=== PATIENT | female | born 1970 | race Caucasian/White ===

== ENCOUNTER 2019-10-19 11:45 | Emergency (ER) | payer SELFPAY | END 2019-10-19 13:20 | disposition left against medical advice (07) | LOC: ER 11:45 | DX: Z53.21 Procedure and treatment not carried out due to patient leaving prior to being seen by health care provider (principal) ==

== ENCOUNTER 2021-02-15 17:06 | Emergency (ER) | payer OTHER ==
[~2021-02-15 17:06] MED LIST: IBU600 MG PO
== END 2021-02-15 19:05 | disposition left against medical advice (07) ==
LOC: ER 17:06
DX: Z53.21 Procedure and treatment not carried out due to patient leaving prior to being seen by health care provider (principal)

== ENCOUNTER 2021-05-16 19:59 | Emergency (ER) | payer OTHER ==
[~2021-05-16] VITALS: Ht 172.7 cm; Wt 136.1 kg
[2021-05-16 20:59] LABS: BASOPHILS ABSOLUTE AUTO 0.06 K/mm3 (0.00-0.23); BASOPHILS PERCENT AUTO 1 % (0-2); EOSINOPHILS ABSOLUTE AUTO 0.27 K/mm3 (0.00-0.68); EOSINOPHILS PERCENT AUTO 3 % (0-6); Hemoglobin 17.5 g/dL (11.5-16.0); IMMATURE GRAN ABSOLUTE AUTO 0.07 K/mm3 (0.00-0.10); IMMATURE GRAN PERCENT AUTO 1 % (0-1); LYMPHOCYTES ABSOLUTE AUTO 2.95 K/mm3 (0.84-5.20); LYMPHOCYTES PERCENT AUTO 29 % (21-46); MONOCYTES ABSOLUTE AUTO 0.63 K/mm3 (0.16-1.47); MONOCYTES PERCENT AUTO 6 % (4-13); Mean Corpuscular HGB 26.6 pg (26.0-34.0); Mean Corpuscular HGB Conc 31.6 g/dL (31.5-36.5); Mean Corpuscular Volume 84 fL (80-100); Mean Platelet Volume 10.6 fL (9.1-12.4); NEUTROPHILS ABSOLUTE AUTO 6.07 K/mm3 (1.96-9.15); NEUTROPHILS PERCENT AUTO 60 % (41-73); Platelet Count 226 K/mm3 (150-400); RDW Coefficient Variation 18.5 % (11.7-14.2); Red Blood Cell Count 6.57 M/mm3 (3.80-5.20); White Blood Cell Count 10.05 K/mm3 (4.00-11.30)
[2021-05-16 21:00] LABS: Hematocrit 55.4 % (33.0-51.0)
[2021-05-16 21:13] LABS: Source, Urine Clean Catch
[2021-05-16 21:17] LABS: Appearance, Urine Clear (Clear); Bilirubin, Urine Neg (Neg); Blood, Urine 4+ (Neg); Color, Urine Yellow (P-Yellow); Glucose Qualitative, Urine 4+ (Neg); Ketones, Urine Neg (Neg); Leukocyte Esterase, Urine Neg (Neg); Nitrite, Urine Neg (Neg); Protein, Urine 1+ (Neg); Urobilinogen, Urine NORM (Normal)
[2021-05-16 21:26] LABS: Alanine Aminotransfer (ALT/SGP 29 U/L (12-78); Albumin, Blood 2.9 g/dL (3.4-5.0); Albumin/Globulin Ratio 0.6 (0.8-1.8); Alk Phos 105 U/L (50-136); Anion Gap 8 mmol/L (6-16); Aspartate Aminotrans (AST/SGOT 14 U/L (12-37); Bilirubin, Total 0.2 mg/dL (0.1-1.0); Blood Urea Nitrogen 5 mg/dL (8-24); Bun/Creatinine Ratio 10.9 (12.0-20.0); CO2, Blood 28 mmol/L (21-32); Calcium, Blood 9.1 mg/dL (8.5-10.1); Chloride, Blood 98 mmol/L (98-108); Creatinine, Blood 0.46 mg/dL (0.40-1.00); Globulin, Blood 4.7 g/dL (2.2-4.0); Glomerular Filtration Rate >60 (60-); Glucose, Blood 434 mg/dL (70-99); Potassium, Blood 3.9 mmol/L (3.5-5.5); Sodium, Blood 134 mmol/L (136-145); Total Protein, Blood 7.6 g/dL (6.4-8.2)
[2021-05-16 21:27] LABS: White Blood Cells, Urine Not Seen /hpf (0-5)
[2021-05-16 21:28] LABS: Bacteria Rare /hpf; Squamous Epithelial Cells Few /hpf (Few)
[2021-05-16] MEDS ORDERED: ALBU90OI INH (21:42)
[2021-05-17] MEDS ORDERED: Colace100 MG PO (00:04)
[2021-05-17] MEDS ORDERED: GLYDO11 ML TOP (00:14)
[2021-05-17] MEDS ORDERED: HUMULIN R100 UNIT/2 SC (00:14)
== END 2021-05-17 00:35 | disposition home or self-care (01) ==
LOC: ER 19:59
PROVIDERS: Physician Assistant
DX: E11.65 Type 2 diabetes mellitus with hyperglycemia (principal); K42.9 Umbilical hernia without obstruction or gangrene; K64.4 Residual hemorrhoidal skin tags; Z88.0 Allergy status to penicillin; Z88.1 Allergy status to other antibiotic agents; Z88.8 Allergy status to other drugs, medicaments and biological substances; Z79.899 Other long term (current) drug therapy; J45.909 Unspecified asthma, uncomplicated; F17.200 Nicotine dependence, unspecified, uncomplicated
CPT/HCPCS: 36415; 71045; 74177; 80053; 81001; 82272; 83690; 85025; 96374; 96375; 99284-25; A9270; J1885; J3010; J7030; Q9967

== ENCOUNTER → 2021-06-09 | Outpatient (CLI) | payer OTHER ==
[~2021-06-09] MED LIST changes: +ALBU90OI INH; +Colace100 MG PO; +GLYDO11 ML TOP; +HUMULIN R100 UNIT/2 SC
[2021-06-09 15:12] LABS: BASOPHILS ABSOLUTE AUTO 0.06 K/mm3 (0.00-0.23); BASOPHILS PERCENT AUTO 1 % (0-2); EOSINOPHILS ABSOLUTE AUTO 0.21 K/mm3 (0.00-0.68); EOSINOPHILS PERCENT AUTO 2 % (0-6); Hematocrit 52.2 % (33.0-51.0); IMMATURE GRAN ABSOLUTE AUTO 0.05 K/mm3 (0.00-0.10); IMMATURE GRAN PERCENT AUTO 0 % (0-1); LYMPHOCYTES ABSOLUTE AUTO 3.25 K/mm3 (0.84-5.20); LYMPHOCYTES PERCENT AUTO 27 % (21-46); MONOCYTES ABSOLUTE AUTO 0.86 K/mm3 (0.16-1.47); MONOCYTES PERCENT AUTO 7 % (4-13); Mean Corpuscular HGB 26.2 pg (26.0-34.0); Mean Corpuscular HGB Conc 30.7 g/dL (31.5-36.5); Mean Corpuscular Volume 86 fL (80-100); Mean Platelet Volume 11.8 fL (9.1-12.4); NEUTROPHILS ABSOLUTE AUTO 7.49 K/mm3 (1.96-9.15); NEUTROPHILS PERCENT AUTO 63 % (41-73); Platelet Count 263 K/mm3 (150-400); RDW Coefficient Variation 17.6 % (11.7-14.2); RDW Standard Deviation 53.1 fL (35.1-46.3); White Blood Cell Count 11.92 K/mm3 (4.00-11.30)
[2021-06-09 15:22] LABS: Alanine Aminotransfer (ALT/SGP 76 U/L (12-78); Albumin, Blood 3.1 g/dL (3.4-5.0); Albumin/Globulin Ratio 0.9 (0.8-1.8); Alk Phos 97 U/L (50-136); Anion Gap 6 mmol/L (6-16); Aspartate Aminotrans (AST/SGOT 49 U/L (12-37); Bilirubin, Total 0.5 mg/dL (0.1-1.0); Blood Urea Nitrogen 8 mg/dL (8-24); Bun/Creatinine Ratio 15.9 (12.0-20.0); CHOL/HDL RATIO 3.6; CO2, Blood 34 mmol/L (21-32); Calcium, Blood 8.7 mg/dL (8.5-10.1); Chloride, Blood 96 mmol/L (98-108); Cholesterol 197 mg/dL (50-200); Globulin, Blood 3.6 g/dL (2.2-4.0); Glomerular Filtration Rate >60 (60-); Glucose, Blood 283 mg/dL (70-99); HDL Cholesterol 55 mg/dL (>39); Low Density Lipoprotein Chol 108 mg/dL (0-110); Potassium, Blood 4.1 mmol/L (3.5-5.5); Sodium, Blood 136 mmol/L (136-145); Total Protein, Blood 6.7 g/dL (6.4-8.2); Triglycerides 169 mg/dL (30-160); Very Low Density Lipoprot Chol 33 mg/dL (6-32)
[2021-06-09 17:38] LABS: Creatinine, Urine Random 17.9 mg/dL (27.00-270.00); Microalb/Creat Ratio UR, Rand 375.978 mg/g (0.000-30.000); Microalbumin, Random Urine 67.3 mg/L (0.000-20.000)
== END ==
LOC: LAB SHORT 13:59
PROVIDERS: Nurse Practitioner Family
DX: Z00.00 Encounter for general adult medical examination without abnormal findings (principal); E10.8 Type 1 diabetes mellitus with unspecified complications
CPT/HCPCS: 80053; 80061; 82043; 82570; 84443; 85025

== ENCOUNTER 2021-07-26 17:29 | Emergency (ER) | payer OTHER ==
[~2021-07-26] VITALS: Ht 167.6 cm; Wt 136.5 kg
[2021-07-26 18:29] LABS: BASOPHILS ABSOLUTE AUTO 0.03 K/mm3 (0.00-0.23); BASOPHILS PERCENT AUTO 0 % (0-2); EOSINOPHILS ABSOLUTE AUTO 0.24 K/mm3 (0.00-0.68); EOSINOPHILS PERCENT AUTO 3 % (0-6); Hematocrit 54.4 % (33.0-51.0); Hemoglobin 17.1 g/dL (11.5-16.0); IMMATURE GRAN ABSOLUTE AUTO 0.03 K/mm3 (0.00-0.10); IMMATURE GRAN PERCENT AUTO 0 % (0-1); LYMPHOCYTES ABSOLUTE AUTO 2.38 K/mm3 (0.84-5.20); LYMPHOCYTES PERCENT AUTO 28 % (21-46); MONOCYTES ABSOLUTE AUTO 0.61 K/mm3 (0.16-1.47); MONOCYTES PERCENT AUTO 7 % (4-13); Mean Corpuscular HGB Conc 31.4 g/dL (31.5-36.5); Mean Corpuscular Volume 86 fL (80-100); Mean Platelet Volume 10.4 fL (9.1-12.4); NEUTROPHILS ABSOLUTE AUTO 5.28 K/mm3 (1.96-9.15); NEUTROPHILS PERCENT AUTO 62 % (41-73); Platelet Count 302 K/mm3 (150-400); RDW Coefficient Variation 17.6 % (11.7-14.2); RDW Standard Deviation 51.7 fL (35.1-46.3); Red Blood Cell Count 6.33 M/mm3 (3.80-5.20); White Blood Cell Count 8.57 K/mm3 (4.00-11.30)
[2021-07-26 18:42] LABS: Alanine Aminotransfer (ALT/SGP 28 U/L (12-78); Albumin, Blood 3.1 g/dL (3.4-5.0); Albumin/Globulin Ratio 0.6 (0.8-1.8); Alk Phos 90 U/L (50-136); Anion Gap 5 mmol/L (6-16); Aspartate Aminotrans (AST/SGOT 17 U/L (12-37); Bilirubin, Total 0.4 mg/dL (0.1-1.0); Blood Urea Nitrogen 5 mg/dL (8-24); Bun/Creatinine Ratio 10.9 (12.0-20.0); CO2, Blood 33 mmol/L (21-32); Calcium, Blood 9.1 mg/dL (8.5-10.1); Chloride, Blood 98 mmol/L (98-108); Creatinine, Blood 0.46 mg/dL (0.40-1.00); Globulin, Blood 4.8 g/dL (2.2-4.0); Glomerular Filtration Rate >60 (60-); Glucose, Blood 258 mg/dL (70-99); Potassium, Blood 3.4 mmol/L (3.5-5.5); Sodium, Blood 136 mmol/L (136-145); Total Protein, Blood 7.9 g/dL (6.4-8.2)
== END 2021-07-27 00:32 | disposition home or self-care (01) ==
LOC: ER 17:29
PROVIDERS: Physician Assistant
DX: R07.9 Chest pain, unspecified (principal); Z88.0 Allergy status to penicillin; Z88.8 Allergy status to other drugs, medicaments and biological substances; E11.9 Type 2 diabetes mellitus without complications; F17.200 Nicotine dependence, unspecified, uncomplicated; Z79.4 Long term (current) use of insulin
CPT/HCPCS: 71046; 71260; 80053; 83690; 83880; 84484; 85025; 85379; 93005; 93010; 99285-25; Q9967

== ENCOUNTER 2021-11-13 17:37 | Emergency (ER) | payer OTHER ==
[~2021-11-13] VITALS: Ht 167.6 cm; Wt 90.7 kg
[2021-11-13 18:24] LABS: BASOPHILS ABSOLUTE AUTO 0.04 K/mm3 (0.00-0.23); BASOPHILS PERCENT AUTO 1 % (0-2); EOSINOPHILS ABSOLUTE AUTO 0.24 K/mm3 (0.00-0.68); EOSINOPHILS PERCENT AUTO 3 % (0-6); Hemoglobin 14.9 g/dL (11.5-16.0); IMMATURE GRAN ABSOLUTE AUTO 0.05 K/mm3 (0.00-0.10); IMMATURE GRAN PERCENT AUTO 1 % (0-1); LYMPHOCYTES PERCENT AUTO 36 % (21-46); MONOCYTES ABSOLUTE AUTO 0.74 K/mm3 (0.16-1.47); MONOCYTES PERCENT AUTO 8 % (4-13); Mean Corpuscular HGB 29.4 pg (26.0-34.0); Mean Corpuscular HGB Conc 33.9 g/dL (31.5-36.5); Mean Corpuscular Volume 87 fL (80-100); Mean Platelet Volume 10.7 fL (9.1-12.4); NEUTROPHILS ABSOLUTE AUTO 4.54 K/mm3 (1.96-9.15); NEUTROPHILS PERCENT AUTO 52 % (41-73); Platelet Count 262 K/mm3 (150-400); RDW Coefficient Variation 15.1 % (11.7-14.2); Red Blood Cell Count 5.06 M/mm3 (3.80-5.20); White Blood Cell Count 8.81 K/mm3 (4.00-11.30)
[2021-11-13 18:35] LABS: Albumin, Blood 2.7 g/dL (3.4-5.0); Albumin/Globulin Ratio 0.6 (0.8-1.8); Bilirubin, Total 0.3 mg/dL (0.1-1.0); Bun/Creatinine Ratio 11.9 (12.0-20.0); Calcium, Blood 8.8 mg/dL (8.5-10.1); Creatinine, Blood 0.5 mg/dL (0.40-1.00); Globulin, Blood 4.4 g/dL (2.2-4.0); Potassium, Blood 3.4 mmol/L (3.5-5.5); Total Protein, Blood 7.1 g/dL (6.4-8.2)
[2021-11-13 19:36] LABS: Influenza A, PCR NEGATIVE (NEGATIVE); Influenza B, PCR NEGATIVE (NEGATIVE); Resp Syncytial Virus, PCR NEGATIVE (NEGATIVE); SARS-Cov-2 (COVID-19) PCR, MMC NEGATIVE (NEGATIVE)
== END 2021-11-13 20:57 | disposition home or self-care (01) ==
LOC: ER 17:37
PROVIDERS: Student in an Organized Health Care Education/Training Program
DX: B34.9 Viral infection, unspecified (principal); E11.65 Type 2 diabetes mellitus with hyperglycemia; Z20.822 Contact with and (suspected) exposure to COVID-19; J45.909 Unspecified asthma, uncomplicated; F17.200 Nicotine dependence, unspecified, uncomplicated; Z79.4 Long term (current) use of insulin; Z79.899 Other long term (current) drug therapy; Z88.1 Allergy status to other antibiotic agents; Z88.0 Allergy status to penicillin; Z88.8 Allergy status to other drugs, medicaments and biological substances
CPT/HCPCS: 0241U; 36415; 71045; 74177; 80053; 82947; 83690; 85025; 93005; 93010; J7030; Q9967

== ENCOUNTER 2022-03-29 17:47 | Emergency (ER) | payer OTHER ==
[~2022-03-29] VITALS: Ht 167.6 cm; Wt 122.5 kg
[~2022-03-29 17:47] MED LIST changes: +CYCL10 PO; +Norco 5-325 Ta1 EACH PO
[2022-03-29 18:44] LABS: BASOPHILS ABSOLUTE AUTO 0.07 K/mm3 (0.00-0.23); BASOPHILS PERCENT AUTO 1 % (0-2); EOSINOPHILS ABSOLUTE AUTO 0.13 K/mm3 (0.00-0.68); EOSINOPHILS PERCENT AUTO 1 % (0-6); Hematocrit 52.3 % (33.0-51.0); Hemoglobin 17.7 g/dL (11.5-16.0); IMMATURE GRAN ABSOLUTE AUTO 0.09 K/mm3 (0.00-0.10); IMMATURE GRAN PERCENT AUTO 1 % (0-1); LYMPHOCYTES ABSOLUTE AUTO 3.55 K/mm3 (0.84-5.20); LYMPHOCYTES PERCENT AUTO 28 % (21-46); MONOCYTES ABSOLUTE AUTO 0.96 K/mm3 (0.16-1.47); MONOCYTES PERCENT AUTO 7 % (4-13); Mean Corpuscular HGB 29.6 pg (26.0-34.0); Mean Corpuscular HGB Conc 33.8 g/dL (31.5-36.5); Mean Corpuscular Volume 88 fL (80-100); Mean Platelet Volume 10.6 fL (9.1-12.4); NEUTROPHILS ABSOLUTE AUTO 8.09 K/mm3 (1.96-9.15); NEUTROPHILS PERCENT AUTO 63 % (41-73); Platelet Count 278 K/mm3 (150-400); RDW Coefficient Variation 13.4 % (11.7-14.2); RDW Standard Deviation 43.2 fL (35.1-46.3); Red Blood Cell Count 5.97 M/mm3 (3.80-5.20); White Blood Cell Count 12.89 K/mm3 (4.00-11.30)
[2022-03-29 19:09] LABS: Albumin, Blood 3.4 g/dL (3.4-5.0); Albumin/Globulin Ratio 0.7 (0.8-1.8); Bilirubin, Total 0.2 mg/dL (0.1-1.0); Bun/Creatinine Ratio 16.4 (12.0-20.0); Calcium, Blood 9.2 mg/dL (8.5-10.1); Creatinine, Blood 0.67 mg/dL (0.40-1.00); Globulin, Blood 4.6 g/dL (2.2-4.0); Potassium, Blood 3.9 mmol/L (3.5-5.5)
[2022-03-29 19:57] LABS: Base Excess Venous 5.5 mmol/L; Bicarbonate Venous 27.9 mmol/L (24.0-30.0); PCO2 Venous 52.2 mmHg (38-42); pH Blood Venous 7.38 (7.34-7.37)
[2022-03-29 20:35] LABS: Source, Urine Clean Catch
[2022-03-29 20:40] LABS: Appearance, Urine Hazy (Clear); Bilirubin, Urine Neg (Neg); Blood, Urine 4+ (Neg); Color, Urine Yellow (P-Yellow); Glucose Qualitative, Urine 4+ (Neg); Ketones, Urine Neg (Neg); Leukocyte Esterase, Urine Neg (Neg); Nitrite, Urine Neg (Neg); Protein, Urine 2+ (Neg); Specific Gravity, Urine 1.015 (1.003-1.022); Urobilinogen, Urine NORM (Normal)
[2022-03-29 20:49] LABS: Bacteria Rare /hpf; Red Blood Cells, Urine 0-2 /hpf (0-2); Squamous Epithelial Cells Few /hpf (Few); White Blood Cells, Urine 0-2 /hpf (0-5); Yeast/Fungi Urine Few /hpf
== END 2022-03-29 22:04 | disposition home or self-care (01) ==
LOC: ER 17:47
PROVIDERS: Physician Assistant
DX: E11.65 Type 2 diabetes mellitus with hyperglycemia (principal); R07.89 Other chest pain; L30.9 Dermatitis, unspecified; J45.909 Unspecified asthma, uncomplicated; F17.210 Nicotine dependence, cigarettes, uncomplicated; Z88.8 Allergy status to other drugs, medicaments and biological substances; Z88.0 Allergy status to penicillin; Z88.1 Allergy status to other antibiotic agents; Z79.899 Other long term (current) drug therapy; Z79.4 Long term (current) use of insulin
CPT/HCPCS: 36415; 71046; 80053; 81001; 82803; 82947; 84484; 85025; 93005; 93010; J1815; J7030

== ENCOUNTER → 2022-04-16 | Outpatient (CLI) | payer OTHER | END | disposition home or self-care (01) | LOC: LAB SHORT 18:24 | DX: R21 Rash and other nonspecific skin eruption (principal) | CPT/HCPCS: 86592 ==

== ENCOUNTER 2022-05-16 17:22 | Emergency (ER) | payer OTHER ==
[~2022-05-16] VITALS: Ht 170.2 cm; Wt 136.1 kg
[2022-05-16 18:07] LABS: BASOPHILS ABSOLUTE AUTO 0.05 K/mm3 (0.00-0.23); BASOPHILS PERCENT AUTO 0 % (0-2); EOSINOPHILS ABSOLUTE AUTO 0.31 K/mm3 (0.00-0.68); EOSINOPHILS PERCENT AUTO 2 % (0-6); Hematocrit 46.4 % (33.0-51.0); IMMATURE GRAN ABSOLUTE AUTO 0.11 K/mm3 (0.00-0.10); IMMATURE GRAN PERCENT AUTO 1 % (0-1); LYMPHOCYTES ABSOLUTE AUTO 2.79 K/mm3 (0.84-5.20); LYMPHOCYTES PERCENT AUTO 19 % (21-46); MONOCYTES ABSOLUTE AUTO 0.81 K/mm3 (0.16-1.47); MONOCYTES PERCENT AUTO 6 % (4-13); Mean Corpuscular HGB 30.4 pg (26.0-34.0); Mean Corpuscular HGB Conc 34.5 g/dL (31.5-36.5); Mean Corpuscular Volume 88 fL (80-100); Mean Platelet Volume 10.4 fL (9.1-12.4); NEUTROPHILS ABSOLUTE AUTO 10.54 K/mm3 (1.96-9.15); NEUTROPHILS PERCENT AUTO 72 % (41-73); Platelet Count 240 K/mm3 (150-400); RDW Coefficient Variation 13.8 % (11.7-14.2); RDW Standard Deviation 43.9 fL (35.1-46.3); Red Blood Cell Count 5.27 M/mm3 (3.80-5.20); White Blood Cell Count 14.61 K/mm3 (4.00-11.30)
[2022-05-16 18:30] LABS: Albumin, Blood 3.1 g/dL (3.4-5.0); Albumin/Globulin Ratio 0.7 (0.8-1.8); Bilirubin, Total 0.4 mg/dL (0.1-1.0); Calcium, Blood 8.8 mg/dL (8.5-10.1); Creatinine, Blood 0.4 mg/dL (0.40-1.00); Globulin, Blood 4.2 g/dL (2.2-4.0); Potassium, Blood 3.4 mmol/L (3.5-5.5); Total Protein, Blood 7.3 g/dL (6.4-8.2)
[2022-05-16 18:36] LABS: Influenza A, PCR NEGATIVE (NEGATIVE); Influenza B, PCR NEGATIVE (NEGATIVE); Resp Syncytial Virus, PCR NEGATIVE (NEGATIVE); SARS-Cov-2 (COVID-19) PCR, MMC NEGATIVE (NEGATIVE)
[2022-05-16] MEDS ORDERED: HYDR1TAB94 PO (20:31)
[2022-05-16] MEDS ORDERED: CEFP200 PO (20:31)
== END 2022-05-16 21:55 | disposition home or self-care (01) ==
LOC: ER 17:22
PROVIDERS: Physician Assistant
DX: H66.91 Otitis media, unspecified, right ear (principal); Z20.822 Contact with and (suspected) exposure to COVID-19; E11.9 Type 2 diabetes mellitus without complications; J45.909 Unspecified asthma, uncomplicated; F17.210 Nicotine dependence, cigarettes, uncomplicated; Z88.0 Allergy status to penicillin; Z88.1 Allergy status to other antibiotic agents; Z88.8 Allergy status to other drugs, medicaments and biological substances; Z79.899 Other long term (current) drug therapy
CPT/HCPCS: 0241U; 36415; 70450; 80053; 83690; 85025; A9270; J0696; J0780; J2270

== ENCOUNTER 2022-05-22 01:03 | Observation (INO) | payer OTHER ==
[~2022-05-22] VITALS: Ht 167.6 cm; Wt 128.4 kg
[~2022-05-22 01:03] MED LIST changes: +CEFP200 PO; +HYDR1TAB94 PO
[2022-05-22 02:18] LABS: BASOPHILS ABSOLUTE AUTO 0.04 K/mm3 (0.00-0.23); BASOPHILS PERCENT AUTO 0 % (0-2); EOSINOPHILS ABSOLUTE AUTO 0.35 K/mm3 (0.00-0.68); EOSINOPHILS PERCENT AUTO 3 % (0-6); Hematocrit 46.8 % (33.0-51.0); Hemoglobin 15.7 g/dL (11.5-16.0); IMMATURE GRAN ABSOLUTE AUTO 0.07 K/mm3 (0.00-0.10); IMMATURE GRAN PERCENT AUTO 1 % (0-1); LYMPHOCYTES ABSOLUTE AUTO 3.09 K/mm3 (0.84-5.20); LYMPHOCYTES PERCENT AUTO 26 % (21-46); MONOCYTES ABSOLUTE AUTO 0.82 K/mm3 (0.16-1.47); MONOCYTES PERCENT AUTO 7 % (4-13); Mean Corpuscular HGB 29.9 pg (26.0-34.0); Mean Corpuscular HGB Conc 33.5 g/dL (31.5-36.5); Mean Corpuscular Volume 89 fL (80-100); Mean Platelet Volume 9.8 fL (9.1-12.4); NEUTROPHILS PERCENT AUTO 63 % (41-73); NRBC ABSOLUTE 0.02 K/mm3 (0.00-0.02); NRBC Auto 0.2 /100 WBC (0.0-0.2); Platelet Count 242 K/mm3 (150-400); RDW Coefficient Variation 14.6 % (11.7-14.2); RDW Standard Deviation 46.5 fL (35.1-46.3); Red Blood Cell Count 5.25 M/mm3 (3.80-5.20); White Blood Cell Count 11.77 K/mm3 (4.00-11.30)
[2022-05-22 02:42] LABS: Albumin, Blood 2.9 g/dL (3.4-5.0); Albumin/Globulin Ratio 0.7 (0.8-1.8); Bilirubin, Total 0.4 mg/dL (0.1-1.0); Bun/Creatinine Ratio 8.3 (12.0-20.0); Calcium, Blood 9.1 mg/dL (8.5-10.1); Creatinine, Blood 0.48 mg/dL (0.40-1.00); Globulin, Blood 4.3 g/dL (2.2-4.0); Potassium, Blood 3.4 mmol/L (3.5-5.5); Total Protein, Blood 7.2 g/dL (6.4-8.2)
[2022-05-22 03:58] LABS: Source, Urine Clean Catch
[2022-05-22 04:00] LABS: Bilirubin, Urine Neg (Neg); Blood, Urine 4+ (Neg); Glucose Qualitative, Urine 3+ (Neg); Ketones, Urine Neg (Neg); Leukocyte Esterase, Urine Neg (Neg); Nitrite, Urine Neg (Neg); Protein, Urine 1+ (Neg); Urobilinogen, Urine NORM (Normal); pH, Urine 6.5 (5.0-8.0)
[2022-05-22 05:23] LABS: Appearance, Urine Clear (Clear); Color, Urine Yellow (P-Yellow)
[2022-05-22 05:25] LABS: Bacteria Few /hpf; Squamous Epithelial Cells Mod /hpf (Few); White Blood Cells, Urine 0-2 /hpf (0-5); Yeast/Fungi Urine Rare /hpf
--- NOTE | 2022-05-22 17:50 | NUR ---
ER ADMIT Patient admitted for syncope. AOx4. During newspaper reporter told patient that d/t risk factors and admit dx, patient needs to call for help when getting OOB, patient said she will call but won't wait for staff if she has urinary urgency, reienforced teaching on safety and fall prevention. Bed alarm activated and audible. Patient refused skin check, but told RN that she has a rash t/o body, and rash under pannus. She stated she has a biopsy scheduled for tomorrow. CBG at 1630 was 336, 8u of SSI administred. Vitals stable, Tele NSR. Will continue plan of care & given report to oncoming nurse.
--- NOTE | 2022-05-23 06:30 | NUR ---
Shift Summary AOx4, pleasant and cooperative. PT has DM2 with uncontrolled blood sugar, A1C 12.1 and blood glucose readings over 300. Pt is non-compliant with ADA diet, requesting sugary drinks. Pt awoke twice in the night feeling terrible with a severe R sided headache and a sensation of being too hot. Gave PRN Fentanyl 50 mcg x 1 and ice packs which the pt stated barely touched the pain. Her PRN Q6 [place] 5mg is far more effective. Was able to convince pt to switch to bubbly temporarily instead of sugar soda. On tele running NSR 80-90. Independent with 1 sba in the room. No acute events.
--- NOTE | 2022-05-23 19:37 | NUR ---
SHIFT SUMMARY PT RESTING QUIETLY AT START OF SHIFT, NPO FOR STRESS TEST THIS AFTERNOON. PT COMPLETED STRESS TEST AND THEN LEFT UNIT TO GO OUT TO K. PT IS NONCOMPLIANT DIABETIC WELL, GOING DOWN TO MACHINES FOR SNACKS; CBG INCREASING THRU OUT THE DAY. DR LATHAM IN TO SEE PT IN AM AND RETURNED AGAIN THIS AFTERNOON TO DISCUSS STRESS TEST RESULTS, BUT PT WAS OUTSIDE SMKING. PT TO HAVE ECHO DONE AND ZIO PATCH PLACED BEFORE D/C TO HOME. PT TO STAY UNTIL AM NOW. PT'S TO THIS EVENING; PT AND SMKING IN RM. PT INFORMED OF RULES BY CLINICAL OUTPATIENT CODERKVNG. PT THEN TAKEN OUTSIDE AGAIN BY , AFTER DINNER, TO [facility] AND JUST NOW RETURNING TO . REPORT GIVEN TO PATRICK DONNELLY.
--- NOTE | 2022-05-23 19:46 | NUR ---
Patient continues to leave floor without nofifying staff,patient has been educated not to leave floor but refuses to follow instructions. Patient is purchasing snacks and beverages that are not compliant with diabetic diet, again refusig to follow medical advise.
--- NOTE | 2022-05-24 06:11 | NUR ---
Patient uncooperative with most of care, prn pain medications given, getting snacks and drinks from vending machine that are not compliants with diabetic diet, refuses education.
--- NOTE | 2022-05-24 11:39 | NUR ---
Echocardiogram performed.
[2022-05-24] MEDS ORDERED: CEFP200 PO (15:34)
--- NOTE | 2022-05-24 16:24 | NUR ---
DISCHARGE SUMMARY: PT DISCHARGED TO HOME WITH BRIDGETTE. PT EDUCATED ON DISCHARGE PLAN AND MEDICATIONS. PT ASSISTED WITH PACKING UP BELONGINGS. PT ESCORTED TO POV VIA WC WITH . LATE ENTRY FROM TODAY: PT WAS NONCOMPLIANT WITH DIET TODAY. PT WENT DOWN AT LUNCH TIME TO CAFETERIA AND ATE 2ND LUNCH. PT SPOUSE PROVIDED HER WITH PEPSI X 2 CANS WHICH SHE DRANK. PT WAS DISCOURAGED TO EAT A SECOND LUNCH AND DRINK PEPSI. SHE WAS EDUCATED ON DIABETES MANAGEMENT. PT CONTINUED TO BE NON COMPLIANT.
== END 2022-05-24 16:18 | disposition home or self-care (01) ==
LOC: ER 01:03 → ERHOLD 01:04 → MEDS 01:04
PROVIDERS: Emergency Medicine; ADMIT Family Medicine
DX: R55 Syncope and collapse (principal); E11.9 Type 2 diabetes mellitus without complications; J45.909 Unspecified asthma, uncomplicated; D72.829 Elevated white blood cell count, unspecified; Z88.0 Allergy status to penicillin; E87.6 Hypokalemia; Z72.0 Tobacco use
CPT/HCPCS: 36415; 71046; 71260; 78452; 80053; 81001; 82947; 83036; 83690; 83735; 83880; 84484; 85025; 93005; 93010; 93017; 93246; 93306; 96374-59; 96375; 96376; 99285-25; A9270; A9500; G0378; J0280; J1815; J1885; J2785; J3010; Q9967

== ENCOUNTER 2022-07-12 04:10 | Inpatient (IN) | payer OTHER ==
[~2022-07-12] VITALS: Ht 172.7 cm; Wt 125.6 kg
[2022-07-12 04:49] LABS: Bicarbonate Venous 30.4 mmol/L (24.0-30.0)
[2022-07-12 04:51] LABS: BASOPHILS ABSOLUTE AUTO 0.08 K/mm3 (0.00-0.23); BASOPHILS PERCENT AUTO 1 % (0-2); EOSINOPHILS ABSOLUTE AUTO 0.33 K/mm3 (0.00-0.68); EOSINOPHILS PERCENT AUTO 3 % (0-6); Hematocrit 52.4 % (33.0-51.0); Hemoglobin 17.3 g/dL (11.5-16.0); IMMATURE GRAN ABSOLUTE AUTO 0.08 K/mm3 (0.00-0.10); IMMATURE GRAN PERCENT AUTO 1 % (0-1); LYMPHOCYTES ABSOLUTE AUTO 3.23 K/mm3 (0.84-5.20); LYMPHOCYTES PERCENT AUTO 27 % (21-46); MONOCYTES PERCENT AUTO 6 % (4-13); Mean Corpuscular HGB 28.8 pg (26.0-34.0); Mean Corpuscular Volume 87 fL (80-100); Mean Platelet Volume 10.1 fL (9.1-12.4); NEUTROPHILS ABSOLUTE AUTO 7.45 K/mm3 (1.96-9.15); NEUTROPHILS PERCENT AUTO 63 % (41-73); Platelet Count 254 K/mm3 (150-400); RDW Standard Deviation 46.5 fL (35.1-46.3); White Blood Cell Count 11.87 K/mm3 (4.00-11.30)
[2022-07-12 05:50] LABS: Calcium, Ionized (POC) 1.17 mmol/L (1.10-1.46); Chloride (POC) 91 mmol/L (98-108); Creatinine (POC) 0.5 mg/dL (0.6-1.0); Glucose (ISTAT POC) 384 mg/dL (70-99); Hemoglobin (POC) 17.7 g/dL (12.0-16.0); Potassium (POC) 3.8 mmol/L (3.5-5.5); Sodium (POC) 133 mmol/L (135-148); Total CO2 (POC) 32 mmol/L (21-32)
[2022-07-12 06:26] LABS: Influenza A, PCR NEGATIVE (NEGATIVE); Influenza B, PCR NEGATIVE (NEGATIVE); Resp Syncytial Virus, PCR NEGATIVE (NEGATIVE); SARS-Cov-2 (COVID-19) PCR, MMC NEGATIVE (NEGATIVE)
--- NOTE | 2022-07-12 10:13 | NUR ---
Pt arrived from ED at 0956, the [facility] gtt completed in the ED just prior to transport. Pt currently on 6 lpm via NC, and able to ambulate short distances using a walker. Pt presented w/ personal effects and personal walker.
[2022-07-12 11:45] LABS: U Amphetamine Screen Not Detected; U Barbituate Screen Not Detected; U Benzodiazapine Screen Not Detected; U Buprenorphine Screen Not Detected; U Cannabinoids Screen Not Detected; U Cocaine Screen Not Detected; U Methadone Screen Not Detected; U Methamphetamine Screen Not Detected; U Opiates Screen DETECTED; U Oxycodone Screen Not Detected; U Phencyclidine Screen Not Detected; U Propoxyphene Screen Not Detected
[2022-07-12 11:55] LABS: Bun/Creatinine Ratio 9.6 (12.0-20.0); Calcium, Blood 9.7 mg/dL (8.5-10.1); Creatinine, Blood 0.83 mg/dL (0.40-1.00); Magnesium, Blood 1.5 mg/dL (1.6-2.4); Potassium, Blood 4.3 mmol/L (3.5-5.5)
--- NOTE | 2022-07-12 14:51 | NUR ---
Pt requesting something else for pain; pt denies any allergies to hydromorphone or morphine. Advised she has "never had any problems" with either og the medications and that the IVP Fentanyl did not help w/ her pain.
[2022-07-12 15:44] LABS: CPK Creatine Kinase 57 U/L (26-193)
[2022-07-12 15:49] LABS: CPK Creatine Kinase 50 U/L (26-192)
[2022-07-12 16:55] LABS: Glucose (ISTAT POC) 582 mg/dL (70-99)
--- NOTE | 2022-07-12 17:00 | NUR ---
Checked pt BGL which read "HI;" performed a POC glucose and received 582. Spoke w/ Dr. Levin who advised he would modify her insulin orders. Also notified Dr. Levin that RN walked in to check pt BGL she had been eating a candy bar given to her by her ex- who was at bedside. RN requested the pt to not eat anything from outside, as it may affect her care.
[2022-07-12 17:53] LABS: Glucose, Blood 616 mg/dL (70-99)
[2022-07-12 21:53] LABS: Glucose, Blood 839 mg/dL (70-99)
[2022-07-12 22:52] LABS: Anion Gap 14 mmol/L (6-16); Blood Urea Nitrogen 13 mg/dL (8-24); Bun/Creatinine Ratio 20.3 (12.0-20.0); CO2, Blood 24 mmol/L (21-32); Calcium, Blood 9.6 mg/dL (8.5-10.1); Chloride, Blood 90 mmol/L (98-108); Creatinine, Blood 0.64 mg/dL (0.40-1.00); Glomerular Filtration Rate 105 (60-); Potassium, Blood 4.3 mmol/L (3.5-5.5); Sodium, Blood 128 mmol/L (136-145)
[2022-07-13 00:02] LABS: Glucose, Blood 860 mg/dL (70-99)
[2022-07-13 01:59] LABS: Glucose, Blood 734 mg/dL (70-99)
[2022-07-13 03:14] LABS: BASOPHILS ABSOLUTE AUTO 0.02 K/mm3 (0.00-0.23); BASOPHILS PERCENT AUTO 0 % (0-2); EOSINOPHILS ABSOLUTE AUTO 0.02 K/mm3 (0.00-0.68); EOSINOPHILS PERCENT AUTO 0 % (0-6); Hematocrit 47.8 % (33.0-51.0); Hemoglobin 15.8 g/dL (11.5-16.0); IMMATURE GRAN ABSOLUTE AUTO 0.14 K/mm3 (0.00-0.10); IMMATURE GRAN PERCENT AUTO 1 % (0-1); LYMPHOCYTES ABSOLUTE AUTO 1.28 K/mm3 (0.84-5.20); LYMPHOCYTES PERCENT AUTO 9 % (21-46); MONOCYTES ABSOLUTE AUTO 0.45 K/mm3 (0.16-1.47); MONOCYTES PERCENT AUTO 3 % (4-13); Mean Corpuscular HGB 29.3 pg (26.0-34.0); Mean Corpuscular HGB Conc 33.1 g/dL (31.5-36.5); Mean Corpuscular Volume 89 fL (80-100); Mean Platelet Volume 10.5 fL (9.1-12.4); NEUTROPHILS PERCENT AUTO 87 % (41-73); NRBC ABSOLUTE 0.02 K/mm3 (0.00-0.02); NRBC Auto 0.1 /100 WBC (0.0-0.2); Platelet Count 270 K/mm3 (150-400); RDW Coefficient Variation 14.6 % (11.7-14.2); RDW Standard Deviation 46.3 fL (35.1-46.3); Red Blood Cell Count 5.39 M/mm3 (3.80-5.20); White Blood Cell Count 14.61 K/mm3 (4.00-11.30)
[2022-07-13 03:36] LABS: Albumin/Globulin Ratio 0.7 (0.8-1.8); Bilirubin, Total 0.3 mg/dL (0.1-1.0); Bun/Creatinine Ratio 19.7 (12.0-20.0); Calcium, Blood 9.2 mg/dL (8.5-10.1); Creatinine, Blood 0.66 mg/dL (0.40-1.00); Globulin, Blood 4.4 g/dL (2.2-4.0); Potassium, Blood 3.8 mmol/L (3.5-5.5); Total Protein, Blood 7.4 g/dL (6.4-8.2)
[2022-07-13 05:01] LABS: Glucose, Blood 551 mg/dL (70-99)
--- NOTE | 2022-07-13 05:45 | NUR ---
SHIFT SUMMARY: CBG done at 2049 read > 500, lab confirmation ordered. Actual glucose was 839. Dr. Og notified, insulin orders modified. CBG checked 1 hour after giving lispro, again read >500. Blood glucose per lab was 860. Dr. Og notified, received one time order for 10 units of lispro SQ. CBG rechecked after giving this dose, still greater than [address] Monaco notified, orders for insulin drip received. Started insulin drip at 4units/hour per MD order. Titrated up to 5units/hr at 0520 because last CBG was still greater than 500. Patient exhibiting polydipsia, polyuria, expresses feelings of hunger and irritability. Diet remains ADA per Dr. Monaco. Patient stated that if she was made NPO, she would leave AMA. Patient has been anxious and irritable throughout the night. Still requiring 6L oxygen by nasal cannula to maintain sats above 92%. She has a persistent, strong, non-productive cough and dyspnea with exertion.
[2022-07-13 06:04] LABS: Glucose, Blood 550 mg/dL (70-99)
--- NOTE | 2022-07-13 10:06 | NUR ---
Assumed care for pt at 0700. Currently on Insulin gtt 5 units/hr due to continued hyperglycemia overnight. Pt remains on 6 lpm o2 via NC w/ dry cough, non-productive cough. A&Ox4, GCS 15 and mostly cooperative w/ care albeit abrasive at times. Ambulates w/ walker to toilet, HR between 90-100 unless ambulating.
--- NOTE | 2022-07-13 12:29 | NUR ---
Pt c/o lower abdominal pain (RLQ/LLQ) and new onset N/V. Spoke w/ Dr. Levin who ordered Reglan IVP, or can escalate to Phenergan IVP if the Reglan does not help.
--- NOTE | 2022-07-13 13:42 | NUR ---
Pt again found eating food brought from outside the hospital by her ex-. Though he advises it is only for him, the RN witnessed pt eating a banana, [employer] breakfast sandwich and Coke. RN again requested that pt only eat foods r/t her ADA diet.
--- NOTE | 2022-07-13 18:15 | NUR ---
Pt remains on Insulin gtt @ 8 units/hr w/ q1hr glucose checks. Pt found eating outside food multiple tiems today. She advised it was because "the hospital food sucks." Rn advised pt this would not assist her care and to please only eat what is provided by hospital and RN. Pt o2 demands decreased today, she is down to 3 lpm o2 via NC. Second IV placed in R forearm, 20 G.
--- NOTE | 2022-07-13 21:30 | NUR ---
ASSUMED CARE/CALL TO HOSP/BEHAVIOR ASSUMED CARE AT 1900. PT A/O X 4. FOLLOWS DIRECTIONS. SR RATE 90'S. VSS. PT ON 3L NC. SPO2 GREATER THEN 90%. LUNG SOUNDS COARSE. INSULIN GTT INFUSING. SEE FLOWSHEET FOR TITRATIONS. PT S.O. BROUGHT IN FOOD AND SODA FOR PT. THIS RN TRIED TO EDUCATE PT ON ADA DIET, DM, AND INSULIN. PT AND S.O. UNRECPTIVE TO EDUCATION. PT STATES "IT'S NOT MY DIET THAT MAKES MY SUGAR HIGH. ITS WHAT YOU ALL ARE DOING. THE STERIODS." PT AND S.O. EDUCATED ON VISITOR HOURS. PT BECAME ANGRY WHEN TOLD THAT THE S.O. COULD NOT STAY THE NIGHT BECAUSE SHE CAN NOT SLEEP W/O THE S.O. PT THREATING TO LEAVE AMA IF SHE CAN NOT GET SLEEPING MEDICATIONS. CALL TO HOSP. ORDER RECEIVED. PT MEDICATED W/ SLEEPING MEDICATIONS. PT AND S.O. NEEDED FREQUENT REMINDERS THAT VISITING HOURS ARE OVER. S.O LEFT AT 2109.
--- NOTE | 2022-07-13 22:10 | NUR ---
UPDATE HOURLY GLUCOSE CHECK SHOWED 396, THE LAST GLUCOSE CHECK AN HOUR AGO WAS 416 WITH THE INSULIN GTT INFUSING AT 10UNITS/HR. PLAN WAS TO INCREASE INSULIN GTT TO 12UNITS/HR. PT EXPRESSED CONCERN THAT SHE SHOULD BECOME HYPOGLYCEMIC IN AN HOUR AND "FEEL LIKE SHIT". EDUCATION WAS GIVEN REGARDING HYPERGLYCEMIA AND THAT A NURSE WOULD BE BACK TO CHECK GLUCOSE IN ONE HOUR AND THAT IF SHE WERE TO START FEELING SYMPTOMATIC THAT THE RN WOULD CHECK GLUCOSE BEFORE THE HOUR IS UP. THE PT BEGAN STATING THAT THIS NURSE AND PRIMARY NURSE "DOESN'T KNOW ANYTHING!" AND BECOMING VERY UPSET, YELLING AT STAFF. CLARIFICATION WAS ATTEMPTED TO BUT THE PT WAS NOT REDIRECTABLE. PT CALLED TO COME PICK HER UP. DR LATHAM CALLED TO COME DISCUSS PLAN OF CARE WITH PT.
--- NOTE | 2022-07-13 22:41 | NUR ---
HOSP AT BEDSIDE SEE PREVIOUS NOTES. PT S.O. CALLED UNIT AND GIVEN UPDATE FROM CHARGE NURSE. HOSP AND CHARGE NURSE AT BEDSIDE TO TALK TO PT. PLAN FOR INSULIN GTT TO STAY AT 12UNITS/HR AND NOT INCREASE UNLESS CBG IS ABOVE 450 PER HOSP. PT AGREES W/ THIS PLAN AND STATES SHE WILL ALLOW CBG'S TO BE CHECKED EVERY HOUR.
--- NOTE | 2022-07-14 01:14 | NUR ---
UPDATE THIS RN IN ROOM TO CHECK CBG. PT EATING PRETZELS IN BED AND REQUESTING WATER. ATTEMPTED TO EDUCATE PT. PT IS NON-RECEPTIVE. PT C/O PAIN IN ABD. MEDICATED PER EMAR. PT IS A HIGH FALL RISK AND DOES NOT CALL FOR HELP GETTING OOB. PT EDUCATED ON RISKS AND PT AGREED TO SIGN RELEASE FROM RESPONSIBILY FORM. FORM IN PT CHART.
--- NOTE | 2022-07-14 03:32 | NUR ---
CALL TO HOSP PT C/O OF ABD PAIN 02/19. PT STATES "MY LIVER IS HURTING. ITS BECAUSE MY SUGAR DROPPED SO FAST". PT REQUESTED TO INCREASE NORCO DOSE TO . CALL TO HOSP. ORDER RECEIVED. THIS RN IN TO NOTIFY PT AND PT SLEEPING. WILL HOLD MEDICATION AT THIS TIME.
[2022-07-14 03:59] LABS: Bun/Creatinine Ratio 22.4 (12.0-20.0); Calcium, Blood 8.8 mg/dL (8.5-10.1); Creatinine, Blood 0.62 mg/dL (0.40-1.00); Potassium, Blood 3.4 mmol/L (3.5-5.5)
--- NOTE | 2022-07-14 05:25 | NUR ---
SHIFT SUMMARY NO ACUTE EVENTS T/O NIGHT. PT SLEPT INTERMITTENTLY T/O NIGHT. VSS. ON 3L NC. PT FREQUENTLY TAKES OFF BP CUFF AND CONTINUOUSLY MOVES BUE. ACCURATE BP HARD TO OBTAIN. PT CONTINUED TO EAT AND DRINK T/O NIGHT. EDUCATION PROVIDED, PT NON-RECEPTIVE. SEE PREVIOUS NOTES REGARDING BEHAVIOR AND CALL TO HOSP. PT IND IN ROOM.
--- NOTE | 2022-07-14 08:30 | NUR ---
INITIAL ASSESSMENT PATIENT ALERT AND ORIENTED X 4, AFEBRILE. PATIENT STATES SHE HAS PAIN IN ABD "WHEN SHE GETS A LOT OF LONG ACTING INSULIN". PATIENT IRRITABLE AT TIMES BUT COOPERATIVE WITH THIS NURSE. PATIENT NON-COMPLIANT WITH FOOD AND FLUID RESTRICTION. PATIENT TALKS TO SELF. PATIENT MUMBLES. PATIENT USES WALKER AT BASELINE AND IS GETTING TO TOILET INDEPENDENTLY. LUNGS CLEAR. PATIENT WEARS 2.5 L NC AT HOME BEFORE SHE ASKED FRANKLINE TO TAKE O2 AWAY BECAUSE SHE WAS MAD AT PCP. PATIENT SATTING 90% AND GREATER ON 3 L NC. PATIENT SOB WITH EXERTION. PATIENT HAS HACKING COUGH BUT HAS NOT COUGHED ANY SPUTUM UP YET. PATIENT IN SR, HR IN THE 80S. SBP IN THE 130S. 1+ EDEMA NOTED TO BLES. ATTENDS IN PLACE FOR OCCASIONAL INCONTINENCE. SCATTERED BRUISES NOTED. INSULIN DRIP AT 2 UNITS/ HOUR. BED LOW, CALL LIGHT IN REACH. WILL CONTINUE TO MONITOR PATIENT FREQUENTLY THROUGHOUT SHIFT.
--- NOTE | 2022-07-14 08:30 | NUR ---
DR. OAKES UPDATED ON PATIENT STATUS. INFORMED THAT INSULIN DRIP UP TO 12 UNITS/ HOUR ON CAMPUS RECRUITING INTERNSHIP BECAUSE PATIENT CONTINUED TO EAT ALL NIGHT. WHEN PATIENT FINALLY WENT TO SLEEP FOR A COUPLE HOURS BLOOD SUGAR DROPPED TO 130S. PATIENT STATES SHE "FEELS LIKE SHIT" WHEN HER BLOOD SUGARS GO UNDER 300S. PATIENT ON INSULIN DRIP AT 2 UNITS/ HOUR AT THIS TIME. PATIENT "ATE 25 M&MS THIS AM TO GET BLOOD SUGAR UP" WHILE ON INSULIN DRIP. INFORMED THAT PATIENT NON-COMPLIANT WITH FOOD AND ALSO WITH FLUID RESTRICTION. INFORMED THAT PATIENT ON HOME O2 NORMALLY AT 2.5 L. PATIENT STATED THAT SHE FIRED HER PCP "FOR BEING AN IDIOT" A FEW MONTHS AGO AND THAT [facility] KEPT BUGGING HER TO GET A NEW RX FOR THE O2. PATIENT STATED SHE GOT TIRED OF THEM BUGGING HER SO SHE TOLD [facility] TO COME BUSINESS DEVELOPMENT ENGINEER THE O2 AND HASN'T BEEN ON IT SINCE. INFORMED THAT PATIENT HAS BEEN ON 3 L NC TO KEEP SATS ABOVE 90%. ORDERS RECEIVED TO TRANSITION PATIENT OFF INSULIN DRIP AND START ON LONG ACTING AND SLIDING SCALE.
[2022-07-14 08:45] LABS: Magnesium, Blood 1.6 mg/dL (1.6-2.4); Phosphorus, Blood 3.1 mg/dL (2.5-4.9)
[2022-07-14] MEDS ORDERED: INSULANI SC (09:02)
[2022-07-14] MEDS ORDERED: NOVOLIN R100 UNIT/2 SC (09:03)
[2022-07-14] MEDS ORDERED: Tessalon200 MG PO (12:04)
[2022-07-14] MEDS ORDERED: PRED20 PO (12:06)
[2022-07-14] MEDS ORDERED: TRAZ50 PO (12:06)
--- NOTE | 2022-07-14 12:50 | NUR ---
SHIFT SUMMARY PATIENT REMAINED ALERT AND ORIENTED X 4, AFEBRILE. PATIENT REMAINED IRRITABLE AT TIMES BUT COOPERATIVE. PATIENT GIVEN PRN NORCO FOR PAIN IN ABD. PATIENT AMBULATED WELL ON OWN IN ROOM WITH WALKER. PATIENT REMAINED SATTING 90% AND GREATER ON 3 L NC. PATIENT SOB WITH EXERTION. PATIENT REMAINED WITH HACKING COUGH BUT DID NOT WANT ANY PRN TESSALON PERLES. HR REMAINED IN 80S. SBP 120S TO 130S. GOOD URINE OUTPUT. PATIENT REFUSED LASIX AND DID NOT FOLLOW RECOMMENDED FLUID RESTRICTION OF 1500 MLS PER DAY. NO BM THIS SHIFT. INSULIN DRIP DC'D AND LONG ACTING INSULIN GIVEN. [facility] AND GIVEN PRIOR TO LUNCH. BLOOD SUGARS RANGED FROM 238 TO 393. PATIENT CONTINUED TO STATE THAT 300S TO 400S WAS WHERE SHE LIKED HER BLOOD SUGARS TO BE. PATIENT RECEIVED KDUR AND MAGNESIUM THIS SHIFT. IN THIS MORNING TO SEE PATIENT. DISCHARGE INFORMATION GIVEN TO PATIENT. PATIENT STATED SHE UNDERSTOOD ALL INFORMATION AND EDUCATION. PATIENT TAKEN OUT TO 'S CAR WITH AT SIDE. HAD ALL BELONGINGS. PATIENT DISCHARGE COMPLETE.
== END 2022-07-14 12:30 | disposition home or self-care (01) | DRG 189 ==
LOC: ER 04:10 → ICUE 06:01 → ERHOLD 06:01 → ICUE 09:53
PROVIDERS: Internal Medicine; Student in an Organized Health Care Education/Training Program; ADMIT Internal Medicine
DX: J96.01 Acute respiratory failure with hypoxia (principal); J45.901 Unspecified asthma with (acute) exacerbation; J44.1 Chronic obstructive pulmonary disease with (acute) exacerbation; F17.210 Nicotine dependence, cigarettes, uncomplicated; Z20.822 Contact with and (suspected) exposure to COVID-19; E66.9 Obesity, unspecified; I25.10 Atherosclerotic heart disease of native coronary artery without angina pectoris; Z86.19 Personal history of other infectious and parasitic diseases; Z85.43 Personal history of malignant neoplasm of ovary; E11.65 Type 2 diabetes mellitus with hyperglycemia; T38.0X5A Adverse effect of glucocorticoids and synthetic analogues, initial encounter; Z71.6 Tobacco abuse counseling; Z90.49 Acquired absence of other specified parts of digestive tract; Z90.710 Acquired absence of both cervix and uterus; Z88.0 Allergy status to penicillin; Z88.1 Allergy status to other antibiotic agents; Z88.8 Allergy status to other drugs, medicaments and biological substances; Z79.4 Long term (current) use of insulin; Z79.899 Other long term (current) drug therapy
CPT/HCPCS: 0241U; 36415; 71045; 80047; 80048; 80053; 82550; 82803; 82947; 83735; 83880; 84100; 84145; 84484; 85014; 85025; 85379; 93005; 93010; 93308; 93321; 94640; 94644; 94664; 94760; 94761; 94762; 96365; 96375; 99285-25; A9270; J1650; J1815; J1885; J1956; J2550; J2765; J2930; J3010; J3475; J7512

== ENCOUNTER 2022-07-18 14:33 | Emergency (ER) | payer OTHER ==
[~2022-07-18] VITALS: Ht 167.6 cm; Wt 114.8 kg
[~2022-07-18 14:33] MED LIST changes: +INSULANI SC; +NOVOLIN R100 UNIT/2 SC; +PRED20 PO; +TRAZ50 PO; +Tessalon200 MG PO
[2022-07-18 15:29] LABS: BASOPHILS ABSOLUTE AUTO 0.04 K/mm3 (0.00-0.23); BASOPHILS PERCENT AUTO 0 % (0-2); EOSINOPHILS ABSOLUTE AUTO 0.37 K/mm3 (0.00-0.68); EOSINOPHILS PERCENT AUTO 3 % (0-6); Hematocrit 51.4 % (33.0-51.0); Hemoglobin 16.2 g/dL (11.5-16.0); IMMATURE GRAN ABSOLUTE AUTO 0.03 K/mm3 (0.00-0.10); IMMATURE GRAN PERCENT AUTO 0 % (0-1); LYMPHOCYTES ABSOLUTE AUTO 2.45 K/mm3 (0.84-5.20); LYMPHOCYTES PERCENT AUTO 23 % (21-46); MONOCYTES ABSOLUTE AUTO 0.59 K/mm3 (0.16-1.47); MONOCYTES PERCENT AUTO 5 % (4-13); Mean Corpuscular HGB 29.2 pg (26.0-34.0); Mean Corpuscular HGB Conc 31.5 g/dL (31.5-36.5); Mean Corpuscular Volume 93 fL (80-100); Mean Platelet Volume 10.8 fL (9.1-12.4); NEUTROPHILS PERCENT AUTO 68 % (41-73); Platelet Count 245 K/mm3 (150-400); RDW Coefficient Variation 14.9 % (11.7-14.2); RDW Standard Deviation 50.5 fL (35.1-46.3); Red Blood Cell Count 5.55 M/mm3 (3.80-5.20); White Blood Cell Count 10.88 K/mm3 (4.00-11.30)
[2022-07-18 15:34] LABS: Albumin, Blood 2.9 g/dL (3.4-5.0); Albumin/Globulin Ratio 0.7 (0.8-1.8); Bilirubin, Total 0.6 mg/dL (0.1-1.0); Bun/Creatinine Ratio 12.4 (12.0-20.0); Creatinine, Blood 0.48 mg/dL (0.40-1.00); Total Protein, Blood 6.9 g/dL (6.4-8.2)
== END 2022-07-18 19:40 | disposition home or self-care (01) ==
LOC: ER 14:33
PROVIDERS: Emergency Medicine
DX: R60.0 Localized edema (principal); R06.00 Dyspnea, unspecified; F17.210 Nicotine dependence, cigarettes, uncomplicated; E11.9 Type 2 diabetes mellitus without complications; J45.909 Unspecified asthma, uncomplicated; Z88.8 Allergy status to other drugs, medicaments and biological substances; Z88.0 Allergy status to penicillin; Z88.1 Allergy status to other antibiotic agents; Z79.899 Other long term (current) drug therapy; Z79.4 Long term (current) use of insulin
CPT/HCPCS: 36415; 71045; 80053; 83880; 84484; 85025; 96374; 99284-25; A9270; J1940

== ENCOUNTER → 2022-08-09 | Outpatient (CLI) | payer OTHER ==
[2022-08-20 22:09] LABS: ANABASINE <1 ng/mL (.); COTININE 31 ng/mL (.); NICOTINE 45 ng/mL (.)
== END ==
LOC: LAB SHORT 11:15 → LAB 11:15
PROVIDERS: Internal Medicine Cardiovascular Disease
DX: F17.200 Nicotine dependence, unspecified, uncomplicated (principal)
CPT/HCPCS: G0480

== ENCOUNTER 2023-01-23 10:44 | Emergency (ER) | payer OTHER ==
[~2023-01-23] VITALS: Ht 167.6 cm; Wt 123.8 kg
[~2023-01-23 10:44] MED LIST changes: +ANORO ELLIPTA1 EAC1; +ATOR40TA PO; +Aspir 8181 MG PO; +Bisoprolol Fumar5 MG PO; +FLUT1DIS5 INH; +Lisinopril2.5 MG PO; +MELO7.5 PO; +NITR.4SL SL; +OMEP20ER PO; +TIOT18 INH; +VENL37.5ER PO
[2023-01-23 10:56] VITALS: BP 140/79
[2023-01-23] MEDS ORDERED: ZEBUTAL 50-3251 EA10 PO ×2 (11:41→12:00)
== END 2023-01-23 12:19 | disposition home or self-care (01) ==
LOC: ER 10:44
DX: G43.909 Migraine, unspecified, not intractable, without status migrainosus (principal); U07.1 COVID-19; F17.210 Nicotine dependence, cigarettes, uncomplicated; E11.9 Type 2 diabetes mellitus without complications; J45.909 Unspecified asthma, uncomplicated; Z86.19 Personal history of other infectious and parasitic diseases; Z79.899 Other long term (current) drug therapy; Z88.0 Allergy status to penicillin; Z88.1 Allergy status to other antibiotic agents; Z88.8 Allergy status to other drugs, medicaments and biological substances; Z79.51 Long term (current) use of inhaled steroids; Z79.4 Long term (current) use of insulin; Z79.82 Long term (current) use of aspirin
CPT/HCPCS: 96372; 99283-25; A9270; J0780; J1200; J1885; J3010; J7030

== ENCOUNTER 2023-01-28 17:03 | Emergency (ER) | payer OTHER ==
[~2023-01-28] VITALS: Ht 167.6 cm; Wt 123.8 kg
[~2023-01-28 17:03] MED LIST changes: +ZEBUTAL 50-3251 EA10 PO
[2023-01-28 18:45] VITALS: BP 123/50
== END 2023-01-28 20:14 | disposition left against medical advice (07) ==
LOC: ER 17:03
DX: R06.02 Shortness of breath (principal); Z53.29 Procedure and treatment not carried out because of patient's decision for other reasons
CPT/HCPCS: 99283

== ENCOUNTER 2023-02-20 03:10 | Emergency (ER) | payer OTHER ==
[~2023-02-20] VITALS: Ht 167.6 cm; Wt 127.0 kg
[2023-02-20 04:09] LABS: BASOPHILS PERCENT AUTO 1 % (0-2); EOSINOPHILS ABSOLUTE AUTO 0.83 K/mm3 (0.00-0.68); EOSINOPHILS PERCENT AUTO 6 % (0-6); Hemoglobin 15.2 g/dL (11.5-16.0); IMMATURE GRAN ABSOLUTE AUTO 0.09 K/mm3 (0.00-0.10); IMMATURE GRAN PERCENT AUTO 1 % (0-1); LYMPHOCYTES ABSOLUTE AUTO 3.61 K/mm3 (0.84-5.20); LYMPHOCYTES PERCENT AUTO 28 % (21-46); MONOCYTES ABSOLUTE AUTO 0.88 K/mm3 (0.16-1.47); MONOCYTES PERCENT AUTO 7 % (4-13); Mean Corpuscular HGB 29.6 pg (26.0-34.0); Mean Corpuscular Volume 90 fL (80-100); Mean Platelet Volume 10.2 fL (9.1-12.4); NEUTROPHILS ABSOLUTE AUTO 7.49 K/mm3 (1.96-9.15); NEUTROPHILS PERCENT AUTO 58 % (41-73); Platelet Count 235 K/mm3 (150-400); RDW Coefficient Variation 13.7 % (11.7-14.2); RDW Standard Deviation 44.6 fL (35.1-46.3); Red Blood Cell Count 5.13 M/mm3 (3.80-5.20)
[2023-02-20 05:37] LABS: Albumin, Blood 2.8 g/dL (3.4-5.0); Albumin/Globulin Ratio 0.6 (0.8-1.8); Bilirubin, Total 0.2 mg/dL (0.1-1.0); Bun/Creatinine Ratio 11.5 (12.0-20.0); Calcium, Blood 8.8 mg/dL (8.5-10.1); Creatinine, Blood 0.61 mg/dL (0.40-1.00); Globulin, Blood 4.7 g/dL (2.2-4.0); Potassium, Blood 4.4 mmol/L (3.5-5.5); Total Protein, Blood 7.5 g/dL (6.4-8.2)
[2023-02-20 05:39] LABS: Beta-hydroxybutyrate 0.8 mg/dL (0.2-2.8)
[2023-02-20 06:11] LABS: Source, Urine Clean Catch
[2023-02-20 06:17] LABS: Appearance, Urine Clear (Clear); Bilirubin, Urine Neg (Neg); Blood, Urine 4+ (Neg); Color, Urine Yellow (P-Yellow); Glucose Qualitative, Urine Neg (Neg); Ketones, Urine Neg (Neg); Leukocyte Esterase, Urine Neg (Neg); Nitrite, Urine Neg (Neg); Protein, Urine Neg (Neg); Urobilinogen, Urine NORM (Normal)
[2023-02-20 06:25] LABS: Squamous Epithelial Cells Rare /hpf (Few); White Blood Cells, Urine 0-2 /hpf (0-5)
[2023-02-20 06:26] LABS: Bacteria Not Seen /hpf; Yeast/Fungi Urine Rare /hpf
[2023-02-20] MEDS ORDERED: METR500 PO (06:38)
[2023-02-20] MEDS ORDERED: CIPR500 PO (06:38)
[2023-02-20] MEDS ORDERED: ACET500 PO (06:39)
[2023-02-20] MEDS ORDERED: TRAM50 PO (06:39)
[2023-02-20 07:30] VITALS: BP 151/76
== END 2023-02-20 10:56 | disposition home or self-care (01) ==
LOC: ER 03:10
PROVIDERS: Emergency Medicine
DX: K52.9 Noninfective gastroenteritis and colitis, unspecified (principal); E86.0 Dehydration; E10.9 Type 1 diabetes mellitus without complications; J45.909 Unspecified asthma, uncomplicated; F17.210 Nicotine dependence, cigarettes, uncomplicated; Z79.899 Other long term (current) drug therapy; Z79.82 Long term (current) use of aspirin; Z79.51 Long term (current) use of inhaled steroids
CPT/HCPCS: 74177; 80053; 81001; 82010; 83690; 84484; 85025; 93005; 93010; 96365-59; 96366; 96375; 99284-25; A9270; J0744; J0780; J1200; J1885; J7030; Q9967

== ENCOUNTER 2023-02-25 05:18 | Emergency (ER) | payer OTHER ==
[~2023-02-25] VITALS: Ht 167.6 cm; Wt 128.4 kg
[~2023-02-25 05:18] MED LIST changes: +ACET500 PO; +CIPR500 PO; +METR500 PO; +TRAM50 PO
[2023-02-25 06:20] VITALS: BP 138/86
[2023-02-25 07:01] LABS: BASOPHILS ABSOLUTE AUTO 0.04 K/mm3 (0.00-0.23); BASOPHILS PERCENT AUTO 0 % (0-2); EOSINOPHILS ABSOLUTE AUTO 0.71 K/mm3 (0.00-0.68); EOSINOPHILS PERCENT AUTO 5 % (0-6); Hematocrit 46.4 % (33.0-51.0); Hemoglobin 15.7 g/dL (11.5-16.0); IMMATURE GRAN ABSOLUTE AUTO 0.08 K/mm3 (0.00-0.10); IMMATURE GRAN PERCENT AUTO 1 % (0-1); LYMPHOCYTES ABSOLUTE AUTO 2.74 K/mm3 (0.84-5.20); LYMPHOCYTES PERCENT AUTO 19 % (21-46); MONOCYTES ABSOLUTE AUTO 0.86 K/mm3 (0.16-1.47); MONOCYTES PERCENT AUTO 6 % (4-13); Mean Corpuscular HGB 29.8 pg (26.0-34.0); Mean Corpuscular HGB Conc 33.8 g/dL (31.5-36.5); Mean Corpuscular Volume 88 fL (80-100); Mean Platelet Volume 10.2 fL (9.1-12.4); NEUTROPHILS ABSOLUTE AUTO 9.81 K/mm3 (1.96-9.15); NEUTROPHILS PERCENT AUTO 69 % (41-73); Platelet Count 241 K/mm3 (150-400); RDW Coefficient Variation 14.1 % (11.7-14.2); RDW Standard Deviation 44.9 fL (35.1-46.3); Red Blood Cell Count 5.26 M/mm3 (3.80-5.20); White Blood Cell Count 14.24 K/mm3 (4.00-11.30)
[2023-02-25 07:28] LABS: Albumin/Globulin Ratio 0.7 (0.8-1.8); Bilirubin, Total 0.3 mg/dL (0.1-1.0); Bun/Creatinine Ratio 10.1 (12.0-20.0); Calcium, Blood 8.8 mg/dL (8.5-10.1); Creatinine, Blood 0.49 mg/dL (0.40-1.00); Globulin, Blood 4.5 g/dL (2.2-4.0); Potassium, Blood 3.6 mmol/L (3.5-5.5); Total Protein, Blood 7.5 g/dL (6.4-8.2)
[2023-02-25 09:48] LABS: Bilirubin, Urine Neg (Neg); Blood, Urine 3+ (Neg); Glucose Qualitative, Urine 2+ (Neg); Ketones, Urine Neg (Neg); Leukocyte Esterase, Urine Neg (Neg); Nitrite, Urine Neg (Neg); Protein, Urine 1+ (Neg); Source, Urine Clean Catch; Urobilinogen, Urine NORM (Normal)
[2023-02-25 09:58] LABS: Appearance, Urine Clear (Clear); Bacteria Not Seen /hpf; Color, Urine Yellow (P-Yellow); Squamous Epithelial Cells Few /hpf (Few); White Blood Cells, Urine Not Seen /hpf (0-5)
== END 2023-02-25 09:39 | disposition home or self-care (01) ==
LOC: ER 05:18
PROVIDERS: Student in an Organized Health Care Education/Training Program
DX: R10.11 Right upper quadrant pain (principal); E11.9 Type 2 diabetes mellitus without complications; J45.909 Unspecified asthma, uncomplicated; F17.210 Nicotine dependence, cigarettes, uncomplicated; Z88.1 Allergy status to other antibiotic agents; Z88.8 Allergy status to other drugs, medicaments and biological substances; Z79.899 Other long term (current) drug therapy; Z79.82 Long term (current) use of aspirin; Z79.4 Long term (current) use of insulin
CPT/HCPCS: 74177; 80053; 81001; 85025; 85379; 99285-25; Q9967

== ENCOUNTER → 2023-03-05 | Outpatient (CLI) | payer OTHER ==
[2023-03-06 20:59] LABS: Adenovirus F 40/41 Not Detected (NOT DETECT); Astrovirus Not Detected (NOT DETECT); Campylobacter Sp Not Detected (NOT DETECT); Cryptosporidium Not Detected (NOT DETECT); Cyclospora Cayetanensis Not Detected (NOT DETECT); E. Coli O157 Not Detected (NOT DETECT); Entamoeba Histolytica Not Detected (NOT DETECT); Enteroaggregative E. coli-EAEC Not Detected (NOT DETECT); Enteropathogenic E. coli-EPEC Detected (NOT DETECT); Enterotoxigenic E. coli-ETEC Not Detected (NOT DETECT); Giardia Lamblia Not Detected (NOT DETECT); Norovirus GI/GII Not Detected (NOT DETECT); Plesiomonas Shigelloides Not Detected (NOT DETECT); Rotavirus A Not Detected (NOT DETECT); Salmonella Sp Not Detected (NOT DETECT); Sapovirus Not Detected (NOT DETECT); Shiga Toxin-prod E. coli-STEC Not Detected (NOT DETECT); Shigella/Enteroin E. coli-EIEC Not Detected (NOT DETECT); Vibrio Cholerae Not Detected (NOT DETECT); Vibrio Sp Not Detected (NOT DETECT); Yersinia Enterocolitica Not Detected (NOT DETECT)
== END ==
LOC: LAB 11:47 → LAB SHORT 03-06 11:47 → LAB 03-06 11:47
PROVIDERS: Physician Assistant
DX: R19.7 Diarrhea, unspecified (principal)
CPT/HCPCS: 87507

== ENCOUNTER → 2023-03-11 | Outpatient (CLI) | payer OTHER ==
[2023-03-12 10:08] LABS: C DIFFICILE DNA Duplicate (Negative)
== END ==
LOC: LAB SHORT 04:45 → LAB 04:45
PROVIDERS: Physician Assistant
DX: R19.7 Diarrhea, unspecified (principal); K92.1 Melena
CPT/HCPCS: 87045; 87328

== ENCOUNTER 2023-04-14 05:00 | Observation (INO) | payer OTHER ==
[~2023-04-14] VITALS: Ht 170.2 cm; Wt 124.8 kg
[2023-04-14 06:14] LABS: BASOPHILS ABSOLUTE AUTO 0.04 K/mm3 (0.00-0.23); BASOPHILS PERCENT AUTO 0 % (0-2); EOSINOPHILS ABSOLUTE AUTO 0.57 K/mm3 (0.00-0.68); EOSINOPHILS PERCENT AUTO 5 % (0-6); Hematocrit 51.1 % (33.0-51.0); Hemoglobin 17.1 g/dL (11.5-16.0); IMMATURE GRAN ABSOLUTE AUTO 0.04 K/mm3 (0.00-0.10); IMMATURE GRAN PERCENT AUTO 0 % (0-1); LYMPHOCYTES ABSOLUTE AUTO 2.64 K/mm3 (0.84-5.20); LYMPHOCYTES PERCENT AUTO 23 % (21-46); MONOCYTES ABSOLUTE AUTO 0.81 K/mm3 (0.16-1.47); MONOCYTES PERCENT AUTO 7 % (4-13); Mean Corpuscular HGB 29.9 pg (26.0-34.0); Mean Corpuscular HGB Conc 33.5 g/dL (31.5-36.5); Mean Corpuscular Volume 89 fL (80-100); NEUTROPHILS ABSOLUTE AUTO 7.52 K/mm3 (1.96-9.15); NEUTROPHILS PERCENT AUTO 65 % (41-73); Platelet Count 253 K/mm3 (150-400); RDW Coefficient Variation 13.8 % (11.7-14.2); RDW Standard Deviation 45.2 fL (35.1-46.3); Red Blood Cell Count 5.72 M/mm3 (3.80-5.20); White Blood Cell Count 11.62 K/mm3 (4.00-11.30)
[2023-04-14 06:29] LABS: Source, Urine Clean Catch
[2023-04-14 06:41] LABS: Appearance, Urine Clear (Clear); Bilirubin, Urine Neg (Neg); Blood, Urine 3+ (Neg); Glucose Qualitative, Urine 4+ (Neg); Ketones, Urine Neg (Neg); Leukocyte Esterase, Urine Neg (Neg); Nitrite, Urine Neg (Neg); Protein, Urine Neg (Neg); Urobilinogen, Urine NORM (Normal)
[2023-04-14 06:41] LABS: Albumin/Globulin Ratio 0.7 (0.8-1.8); Bilirubin, Total 0.4 mg/dL (0.1-1.0); Bun/Creatinine Ratio 11.8 (12.0-20.0); Calcium, Blood 8.6 mg/dL (8.5-10.1); Creatinine, Blood 0.42 mg/dL (0.40-1.00); Globulin, Blood 4.3 g/dL (2.2-4.0); Potassium, Blood 3.5 mmol/L (3.5-5.5); Total Protein, Blood 7.3 g/dL (6.4-8.2)
[2023-04-14 06:53] LABS: Magnesium, Blood 1.4 mg/dL (1.6-2.4)
[2023-04-14 06:55] LABS: Color, Urine Pale Yellow (P-Yellow)
[2023-04-14 06:57] LABS: Yeast/Fungi Urine Few /hpf
[2023-04-14 06:59] LABS: Bacteria Few /hpf; White Blood Cells, Urine 0-2 /hpf (0-5)
[2023-04-14 07:01] LABS: Squamous Epithelial Cells Rare /hpf (Few)
[2023-04-14 11:21] VITALS: BP 130/82
[2023-04-14 16:58] VITALS: BP 141/94
--- NOTE | 2023-04-14 19:02 | NUR ---
SHIFT SUMMARY: NO ACUTE EVENTS. O2 @ 4 L/MIN NC; PT AND SPOUSE EDUCATED ABOUT NON SMOKING/NO TOBACCO HOSPITAL POLICY. BOTH ACKNOWLEDGED THAT THEY DID NOT HAVE ANY TOABCCO PRODUCTS OR INCENDIARY DEVICES IN THEIR POSSESSION. PT ALSO DECLINED NICOTINE PATCH TWICE. TOLERATING CLEAR LIQUID DIET. EDUCATED ABOUT COLONOSCOPY PROCEDURE, WHICH SHE STATED SHE HAS HAD BEFORE, AND UNDERSTANDS ABOUT THE PREP AND NPO STATUS PRIOR. DR. ORTIZ WAS IN TO SEE PT. MEDICATED FOR PAIN WITH TORADOL IV AND OXYCODONE WITH GOOD EFFECT. MAGNESIUM REPLACED IN ER.
[2023-04-14] MEDS ORDERED: TRAZ50 PO (19:13)
[2023-04-14 19:39] VITALS: BP 132/73
--- NOTE | 2023-04-14 21:23 | NUR ---
PT HAD HS CBG 386 HOSPITALIST NOTIFIED. PT REFUSED BOTH REGULAR AND LONG ACTING INSULIN FOR TREATMENT. PT FINALLY AGREED TO ORAL AMARYL FOR GLYCEMIC CONTROL. HOSPITALIST IS AWARE OF PT HISTORY OF NON ADHERENCE TO MEDICATIONS.
--- NOTE | 2023-04-14 22:31 | NUR ---
ATTEMPTED TO DO LEADER ROUNDING ON PT. WALKED INTO ROOM, INTRODUCED MYSELF, EXPLAINED WHAT I WAS THERE TO DO AND ASKED IF IT WAS OK TO ASK HER SOME QUESTIONS. PT SAYS "YAH, CAN I COMPLAIN TO YOU TOO?". I STATED THAT I WAS THERE TO LISTEN. PT UPSET THAT SHE WAS BROUGHT DIET PEPSI, I ASKED IF SHE WAS DIABETIC, SHE STATED SHE IS BUT SHE IS NOT ON A DIABETIC DIET, SHE IS ON A CLEAR LIQUID DIET. I TOLD HER I WOULD BRING HER ORDERS UP ON THE COMPUTER TO SEE IF ANY OTHER ORDERS WERE ON THERE THAT THE STAFF WOULD NEED TO FOLLOW TO WHY THEY WOULD BRING DIET AND NOT REGULAR. I STARTED TO TRY TO LOG ON TO THE COMPUTER SHE SAYS, YOU ARE NOT LISTENING TO ME, I SAID I AM BUT I NEED TO LOOK AT THE KEYBOARD TO TYPE IN MY PASSWORD. SHE THEN STARTS REPORTING THAT HER BLOOD SUGAR WAS HIGH BUT IT WAS NOT BECAUSE OF WHAT SHE ATE, THAT IT WAS A MEDICATION THAT SHE RECIEVED AND ASKED IF I AGREED WITH HER. SHE SAYS AGAIN THAT I AM NOT LISTENING. I TOLD HER I WAS LISTENING BUT SHE WAS NOT GIVING ME A CHANCE TO SAY ANYTHING. I STATED THAT I UNDERSTOOD THAT SHE HAD HER BELIEF THAT IT WAS A MEDICATION SHE WAS GIVEN BUT THAT MANY THINGS CAUSE A BLOOD SUGAR TO BE HIGH SO I WOULDN'T BE ABLE TO TELL HER EXACTLY WHAT IT WAS THAT CAUSED HERS TO BE HIGH, THERE IS NO WAY TO SAY THAT IT WAS A MED AND NOT HER FOOD INTAKE. HER BLOOD SUGAR WAS 386. SHE STATED THAT THAT WAS THE MOST IGNORANT ANSWER SHE EVER HEARD. I TOLD HER IF SHE WAS GOING TO INSULT ME I WAS NOT GOING TO STAY IN HER ROOM. SHE SAYS SHE DID NOT INSULT ME. I TOLD HER SHE HAD JUST SAID THAT MY ANSWER WAS IGNORANT AND IF SHE WAS GOING TO INSULT ME I WOULD LEAVE HER ROOM. SHE CONTINUED TO BE RUDE SO I TOLD HER I WAS LEAVING HER ROOM. SHE ASKED ME WHAT QUESTIONS I HAD FOR HER, I SAID NONE BECAUSE I WAS LEAVING HER ROOM. SHE ASKED ME IF I WOULD TAKE THE SODA WITH ME, I SAID I WOULD NOT, I AM JUST GOING TO LEAVE HER ROOM. I COULD HERE HER TELL HER SHE WAS GOING TO LEAVE AND HERE HIM TELL HER SHE WAS NOT GOING TO LEAVE I WALKED OUT OF THE ROOM. I REPORTED THE INTERACTION TO HER PRIMARY RN WHO ALSO SAID THAT SHE WAS BEING RUDE TO HIM WELL.
[2023-04-15 03:08] VITALS: BP 152/125
--- NOTE | 2023-04-15 03:14 | NUR ---
PT REQUESTED TO GO OUTSIDE TO GET SOME FRESH AIR. PT WAS MADE AWARE OF AND AGREED WITH [facility] POLICY NOT ALLOWING FIRE SMOKE IGNITION SOURCES ON CAMPUS. PT IN WHEELCHAIR WITH SPOUSE PUSHING.
[2023-04-15 05:05] LABS: BASOPHILS ABSOLUTE AUTO 0.07 K/mm3 (0.00-0.23); BASOPHILS PERCENT AUTO 1 % (0-2); EOSINOPHILS PERCENT AUTO 7 % (0-6); Hematocrit 48.6 % (33.0-51.0); Hemoglobin 16.3 g/dL (11.5-16.0); IMMATURE GRAN ABSOLUTE AUTO 0.03 K/mm3 (0.00-0.10); IMMATURE GRAN PERCENT AUTO 0 % (0-1); LYMPHOCYTES ABSOLUTE AUTO 3.46 K/mm3 (0.84-5.20); LYMPHOCYTES PERCENT AUTO 39 % (21-46); MONOCYTES ABSOLUTE AUTO 0.64 K/mm3 (0.16-1.47); MONOCYTES PERCENT AUTO 7 % (4-13); Mean Corpuscular HGB 29.7 pg (26.0-34.0); Mean Corpuscular HGB Conc 33.5 g/dL (31.5-36.5); Mean Corpuscular Volume 89 fL (80-100); Mean Platelet Volume 10.5 fL (9.1-12.4); NEUTROPHILS ABSOLUTE AUTO 3.98 K/mm3 (1.96-9.15); NEUTROPHILS PERCENT AUTO 45 % (41-73); Platelet Count 238 K/mm3 (150-400); RDW Coefficient Variation 13.6 % (11.7-14.2); RDW Standard Deviation 44.3 fL (35.1-46.3); Red Blood Cell Count 5.49 M/mm3 (3.80-5.20); White Blood Cell Count 8.78 K/mm3 (4.00-11.30)
[2023-04-15 05:50] LABS: Bun/Creatinine Ratio 11.9 (12.0-20.0); Calcium, Blood 8.6 mg/dL (8.5-10.1); Creatinine, Blood 0.42 mg/dL (0.40-1.00); Potassium, Blood 3.8 mmol/L (3.5-5.5)
--- NOTE | 2023-04-15 05:58 | NUR ---
SHIFT SUMMARY NOC A/O X 4. IRRITABLE AND RUDE TO NURSING STAFF. PT WAS UPSET THAT PAIN RX WAS NOT AVAILABLE MORE FREQUENTLY, AND HOSPITALIST NOTIFIED AND ORDER FOR DILAUDID Q4H OBTAINED. PT EVENING CBG 386 AND PT REFUSED INSULIN COVERAGE BECAUSE THEY BELIEVED THAT THIS HAS BEEN ROOT CAUSE OF GI ISSUES PT HAS BEEN HAVING FOR PAST 3 MONTHS. HOSPITALIST NOTIFIED AND COMPROMISE MADE WITH PT TO TAKE ORAL DIABETIC RX. PT REPORTED FEELING HYPOGLYCEMIC, BUT CBG 352, PT HAD JUST RECEIVED FIRST DOSE OF DIALUADID WITH GOOD EFFECT. PT IS ON CLEAR LIQUID DIET AND WILL TRANSITION TO NPO STATUS SOMETIME THIS MORNING AFTER RECEIVING BOWEL PREP IN ANTICIPATION OF COLONOSCOPY THIS EVENING. PT WENT OUTSIDE WITH SIGNIFICANT OTHER TO GET FRESH AIR AFTER AGREEING TO ADHERE TO [facility] NON FIRE IGNITION/SAFETY POLICY. CHARGE NURSE AND MOUNTER SAXOPHONES AWARE. PT HAS LR INFUSING @ 100 ML/HR. PT IS CURRENTLY RESTING IN ROOM, EX SPOUSE IS IN ROOM WITH PT, BED IN LOWEST POSITION, AND CALL LIGHT WITHIN REACH.
[2023-04-15 07:55] VITALS: BP 118/85
--- NOTE | 2023-04-15 16:56 | NUR ---
0700- PT DISCONNECTED IV FROM FLUIDS AND SIGNIFICANT OTHER WHEELED HER DOWN IN HOSPITAL WC TO GET "FRESH AIR." PT ASKED NOT TO LEAVE AND INFORMED ABOUT HOSPITAL POLICY. PT SAID, "I DON'T CARE, I NEED FRESH AIR."
--- NOTE | 2023-04-15 16:57 | NUR ---
0710- MINDY AND RUTH ANN MORLEY BOTH INFORMED THAT PT HAD LEFT THE FLOOR AND DISCONNECTED HER IV.
--- NOTE | 2023-04-15 16:58 | NUR ---
0745- PT CAME BACK TO MEDICAL FLOOR. PT AND SIGNIFICANT OTHER BOTH HAD FOUL ODOR OF CIGARETTE SMOKE. NURSING TOBACCO GRADER NOTIFIED OF HIGH RISK PT. AYANNA REQUESTED FOR PT.
--- NOTE | 2023-04-15 17:16 | NUR ---
0815- VERBAL OVER THE PHONE TO CHANGE CHEM BG AND INSULIN TO Q6. VERBAL FROM DR. SR.
--- NOTE | 2023-04-15 17:17 | NUR ---
1155- PT'S CAME OUT TO THE HALLWAY AND WAS YELLING AT THIS NURSE TO PLACE A NEW IV FOR PT. PT'S IV HAS GONE BAD AND IS LEAKING NOW DUE TO PT CONTINUOUSLY DISCONNECTING IV FROM POLE TO GO TO THE BATHROOM. PT WAS ASKED SEVERAL TIMES TO PLEASE STOP DISCONNECTING HERSELF FROM THE IV.
--- NOTE | 2023-04-15 17:20 | NUR ---
1400- DR. ORTIZ CALLED THIS RN FOR AN UPDATE ON PT. RN INFORMED HIM PT HAD NOT EVEN FINISHED 1/2 OF THE BOWEL PREP. PT HAS BEEN CONTINUOUSLY REMINDED OF HOW MUCH PREP SHE NEEDS TO DRINK IN ORDER TO HAVE THE SCOPE TODAY. PT GETS UPSET AND IRRITABLE WHEN SPOKEN TO. PT KEEPS STATING SHE WAS, "SUPPOSED TO GET THE SMALL BOWEL PREP." PT REMINDED THE HOSPITAL ONLY SUPPLIES THE GO LYTELY AND THE SURE PREP IS NOT STOCKED.
--- NOTE | 2023-04-15 17:28 | NUR ---
7915- RN SPOKE WITH PT ABOUT SCOPE BEING CANELED. DIANA INFORMED RN THAT PT CAN CONTINUE DRINKING GO LYTELY AND SCOPE COULD POSSIBLY DONE TOMORROW MORNING. THIS RN INFORMED PT OF MD'S ORDERS AND PT RESPONDED WITH, "ARE YOU FUCKING KIDDING ME?! I WANT TO TALK WITH MY DOCTOR. YOU ARE SCREWING WITH ME." PT THEN LOOKED AT THE SITTER IN THE ROOM AND SAID, "I AM GOING TO GO TO DETENTION BECAUSE I AM GOING TO FUCKING KILL HER." THIS RN REPORTED THE PT'S THREAT TO CHARGE NURSE CONY MORLEY.
--- NOTE | 2023-04-15 17:36 | NUR ---
1706- PT YELLING AT NURSE STATING, "YOU DIDN'T EVEN GIVE ME MY DILAUDID. I CAN ALWAYS FEEL IT AND I DIDN'T FEEL IT." RN ENSURED PT IT WAS GIVEN IV.
--- NOTE | 2023-04-15 18:28 | NUR ---
PT REFUSED Q6 CBG CHECK
[2023-04-15 19:04] VITALS: BP 134/91
--- NOTE | 2023-04-15 19:06 | NUR ---
04/15/231905 Jessica Mauricio History, Chart, Medications and Allergies reviewed before start of procedure. MONITOR INTACT WITH CONTINUOUS PULSE OXIMETRY, CONTINUOUS END TITAL CO2, AND INTERMITTENT BLOOD PRESSURE. O2 VIA N/C INTACT THROUGHOUT SEDATION/PROCEDURE. 3-LEAD EKG REVIEWED WITH PHYSICIAN PRIOR TO START OF PROCEDURE.
--- NOTE | 2023-04-15 19:07 | NUR ---
PT TO DAY SURGERY WITH 20G IV IN LEFT HAND
--- NOTE | 2023-04-15 19:37 | NUR ---
SUMMARY- REFER TO MULTIPLE ABOVE NOTES FOR ACUTE EVENTS THROUGHOUT THE DAY WITH PT. PT HAS BEEN EXTREMELY DIFFICULT THIS SHIFT WITH CARE/TREATMENT AND UNCOOPERATIVE WITH MULTIPLE SITUATIONS THIS SHIFT.
--- NOTE | 2023-04-15 23:50 | NUR ---
2046 PATIENT BACK FROM SCOPE, BIOPSY SENT, PATIENT VERY ANXIOUS AND DEMANDING NEEDS FROM STAFF, CONTACTED IN REGRADS TO PATIENT POSSIBLE BEING DISCHARGED TONIGHT, PATIENT CONTINUES TO ASK FOR PAIN MEDS AND FOOD, MEDICATED WITH PAIN AND REGLAN, SIGNIFIGANT OTHER AT BEDSIDE. PATIENT SLEEPING PRESENTLY, RESPS EVEN AND NONLABORED, 1:1 FOR IGNITION AND SMOKING, CALL LIGHT WITH IN REACH
--- NOTE | 2023-04-16 00:41 | NUR ---
PATIENT AGAIN REQUESTING TO GO HOME, REPORTED TO DR WANG, DC ORDERS TO BE IN ABOUT 20 MINUTES, PATIENT NONDIRECTABLE OR CONSOLABLE, IMPATIENT AND DEMANDING
[2023-04-16] MEDS ORDERED: GLIP10 PO (01:15)
--- NOTE | 2023-04-16 01:56 | NUR ---
DUSCHARAGED AT 0130, PATIENT VERY ANXIOUS ABD HURRIED TO LEAVE WITH DISREGARD TO DISCHARGE EDUCATION, BOTH PATIENT AND SO STATED UNDERSTANDING, PATIENT REQUESTED TO STAY ON THE BENCH OUTSIDE UNTIL SO BROUGHT THE CARE AROUND, SO ON HIS WAY WITH CAR, PATIENT MALIPULATIVE AND BIPOLAR CONSTANT INTERACTIONS, PATIENT DISCHARGED HOME
== END 2023-04-16 01:23 | disposition home or self-care (01) ==
LOC: ER 05:00 → MEDS 05:01 → ER 09:37 → MEDS 09:37
PROVIDERS: Internal Medicine Gastroenterology; Student in an Organized Health Care Education/Training Program; ADMIT Internal Medicine
PROC: 0DBL8ZZ Excision of Transverse Colon, Via Natural or Artificial Opening Endoscopic (ICD-10-PCS; principal; 2023-04-15 19:00)
DX: K52.9 Noninfective gastroenteritis and colitis, unspecified (principal); K63.5 Polyp of colon; K64.8 Other hemorrhoids; E78.5 Hyperlipidemia, unspecified; J45.909 Unspecified asthma, uncomplicated; E11.9 Type 2 diabetes mellitus without complications; Z88.0 Allergy status to penicillin; Z88.1 Allergy status to other antibiotic agents; E66.01 Morbid (severe) obesity due to excess calories; J96.11 Chronic respiratory failure with hypoxia; I10 Essential (primary) hypertension; F17.210 Nicotine dependence, cigarettes, uncomplicated; Z68.41 Body mass index [BMI] 40.0-44.9, adult
CPT/HCPCS: 36415; 74177; 80048; 80053; 81001; 82947; 83690; 83735; 85025; 88305; 88342; 93005; 93010; 94640; 94664; 96365-59; 96367; 96374; 96375; 96376; 99285-25; A9270; G0378; J0744; J1170; J1790; J1885; J2001; J2270; J2704; J2765; J3475; J7030; J7120; Q9967

== ENCOUNTER → 2023-06-06 | Outpatient (CLI) | payer OTHER ==
[~2023-06-06] MED LIST changes: +GLIP10 PO
[2023-06-07 12:07] LABS: C DIFFICILE DNA NEGATIVE (Negative)
[2023-06-11 17:45] LABS: CALPROTECTIN,FECAL 6 ug/g (<=49)
== END ==
LOC: LAB SHORT 11:00 → LAB 11:00 → EDSTATUS 06-04 15:45 → LAB FUT 06-04 15:45
PROVIDERS: Physician Assistant
DX: R19.7 Diarrhea, unspecified (principal)
CPT/HCPCS: 83993; 87015; 87045; 87046; 87205; 87493; 87899

== ENCOUNTER → 2023-06-20 | Outpatient (CLI) | payer OTHER | LOC: LAB EV 17:57 → LAB SHORT 17:57 | DX: N39.0 Urinary tract infection, site not specified (principal) | CPT/HCPCS: 87086 ==

== ENCOUNTER 2023-10-21 21:54 | Emergency (ER) | payer OTHER ==
[~2023-10-21] VITALS: Ht 170.2 cm; Wt 104.3 kg
[2023-10-21 23:27] LABS: BASOPHILS PERCENT AUTO 1 % (0-2); EOSINOPHILS PERCENT AUTO 6 % (0-6); Hematocrit 52.4 % (33.0-51.0); Hemoglobin 17.8 g/dL (11.5-16.0); IMMATURE GRAN ABSOLUTE AUTO 0.07 K/mm3 (0.00-0.10); IMMATURE GRAN PERCENT AUTO 1 % (0-1); LYMPHOCYTES ABSOLUTE AUTO 3.82 K/mm3 (0.84-5.20); LYMPHOCYTES PERCENT AUTO 29 % (21-46); MONOCYTES ABSOLUTE AUTO 0.87 K/mm3 (0.16-1.47); MONOCYTES PERCENT AUTO 7 % (4-13); Mean Corpuscular HGB 30.3 pg (26.0-34.0); Mean Corpuscular Volume 89 fL (80-100); Mean Platelet Volume 10.3 fL (9.1-12.4); NEUTROPHILS ABSOLUTE AUTO 7.55 K/mm3 (1.96-9.15); NEUTROPHILS PERCENT AUTO 57 % (41-73); Platelet Count 304 K/mm3 (150-400); RDW Coefficient Variation 13.4 % (11.7-14.2); RDW Standard Deviation 43.8 fL (35.1-46.3); Red Blood Cell Count 5.88 M/mm3 (3.80-5.20); White Blood Cell Count 13.21 K/mm3 (4.00-11.30)
[2023-10-21 23:47] LABS: Albumin, Blood 3.4 g/dL (3.4-5.0); Albumin/Globulin Ratio 0.7 (0.8-1.8); Bilirubin, Total 0.4 mg/dL (0.1-1.0); Bun/Creatinine Ratio 19.8 (12.0-20.0); Calcium, Blood 9.2 mg/dL (8.5-10.1); Creatinine, Blood 0.41 mg/dL (0.40-1.00); Globulin, Blood 4.8 g/dL (2.2-4.0); Potassium, Blood 4.2 mmol/L (3.5-5.5); Total Protein, Blood 8.2 g/dL (6.4-8.2)
[2023-10-22 00:31] VITALS: BP 150/93
[2023-10-22 02:02] LABS: Hematocrit 49.1 % (33.0-51.0); Hemoglobin 16.7 g/dL (11.5-16.0)
== END 2023-10-22 01:56 | disposition home or self-care (01) ==
LOC: ER 21:54
PROVIDERS: Emergency Medicine; Student in an Organized Health Care Education/Training Program
DX: K92.1 Melena (principal); J45.909 Unspecified asthma, uncomplicated; E11.9 Type 2 diabetes mellitus without complications; F17.210 Nicotine dependence, cigarettes, uncomplicated; Z88.8 Allergy status to other drugs, medicaments and biological substances; Z88.0 Allergy status to penicillin; Z88.1 Allergy status to other antibiotic agents; Z79.4 Long term (current) use of insulin; Z79.82 Long term (current) use of aspirin; Z79.899 Other long term (current) drug therapy
CPT/HCPCS: 80053; 85014; 85018; 85025; 99283

== ENCOUNTER → 2023-10-30 | Outpatient (CLI) | payer OTHER | END | disposition home or self-care (01) | LOC: LAB SHORT 18:05 → LAB 18:05 | DX: R31.0 Gross hematuria (principal) | CPT/HCPCS: 87086 ==

== ENCOUNTER 2023-11-28 15:53 | Emergency (ER) | payer OTHER ==
[~2023-11-28] VITALS: Ht 167.6 cm; Wt 117.9 kg
[2023-11-28 16:11] VITALS: BP 129/104
== END 2023-11-28 17:18 ==
LOC: ER 15:53
DX: M25.521 Pain in right elbow (principal); I10 Essential (primary) hypertension; E11.9 Type 2 diabetes mellitus without complications; J44.9 Chronic obstructive pulmonary disease, unspecified; F17.210 Nicotine dependence, cigarettes, uncomplicated; Z79.51 Long term (current) use of inhaled steroids; Z79.82 Long term (current) use of aspirin; Z79.899 Other long term (current) drug therapy; Z79.4 Long term (current) use of insulin; Z88.0 Allergy status to penicillin; Z88.1 Allergy status to other antibiotic agents; Z88.8 Allergy status to other drugs, medicaments and biological substances
CPT/HCPCS: 93971; 99283-25

== ENCOUNTER → 2024-01-09 | Outpatient (CLI) | payer OTHER ==
[2024-01-10 00:14] LABS: Campylobacter Sp Not Detected (NOT DETECT)
[2024-01-10 00:15] LABS: Adenovirus F 40/41 Not Detected (NOT DETECT); Astrovirus Not Detected (NOT DETECT); Cryptosporidium Not Detected (NOT DETECT); Cyclospora Cayetanensis Not Detected (NOT DETECT); E. Coli O157 Not Detected (NOT DETECT); Entamoeba Histolytica Not Detected (NOT DETECT); Enteroaggregative E. coli-EAEC Not Detected (NOT DETECT); Enteropathogenic E. coli-EPEC Not Detected (NOT DETECT); Enterotoxigenic E. coli-ETEC Not Detected (NOT DETECT); Giardia Lamblia Not Detected (NOT DETECT); Norovirus GI/GII Not Detected (NOT DETECT); Plesiomonas Shigelloides Not Detected (NOT DETECT); Rotavirus A Not Detected (NOT DETECT); Salmonella Sp Not Detected (NOT DETECT); Sapovirus Not Detected (NOT DETECT); Shiga Toxin-prod E. coli-STEC Not Detected (NOT DETECT); Shigella/Enteroin E. coli-EIEC Not Detected (NOT DETECT); Vibrio Cholerae Not Detected (NOT DETECT); Vibrio Sp Not Detected (NOT DETECT); Yersinia Enterocolitica Not Detected (NOT DETECT)
== END ==
LOC: LAB SHORT 11:43 → LAB 11:43
PROVIDERS: Family Medicine
DX: K92.1 Melena (principal)
CPT/HCPCS: 87507

== ENCOUNTER → 2024-03-04 | Outpatient (CLI) | payer OTHER ==
[2024-03-04 18:59] LABS: BASOPHILS ABSOLUTE AUTO 0.08 K/mm3 (0.00-0.23); BASOPHILS PERCENT AUTO 1 % (0-2); EOSINOPHILS ABSOLUTE AUTO 0.81 K/mm3 (0.00-0.68); EOSINOPHILS PERCENT AUTO 7 % (0-6); Hematocrit 50.9 % (33.0-51.0); IMMATURE GRAN ABSOLUTE AUTO 0.02 K/mm3 (0.00-0.10); IMMATURE GRAN PERCENT AUTO 0 % (0-1); LYMPHOCYTES ABSOLUTE AUTO 2.91 K/mm3 (0.84-5.20); LYMPHOCYTES PERCENT AUTO 26 % (21-46); MONOCYTES ABSOLUTE AUTO 0.64 K/mm3 (0.16-1.47); MONOCYTES PERCENT AUTO 6 % (4-13); Mean Corpuscular HGB 29.9 pg (26.0-34.0); Mean Corpuscular HGB Conc 33.4 g/dL (31.5-36.5); Mean Corpuscular Volume 90 fL (80-100); Mean Platelet Volume 11.6 fL (9.1-12.4); NEUTROPHILS ABSOLUTE AUTO 6.75 K/mm3 (1.96-9.15); NEUTROPHILS PERCENT AUTO 60 % (41-73); Platelet Count 275 K/mm3 (150-400); RDW Coefficient Variation 13.2 % (11.7-14.2); RDW Standard Deviation 42.7 fL (35.1-46.3); Red Blood Cell Count 5.69 M/mm3 (3.80-5.20); White Blood Cell Count 11.21 K/mm3 (4.00-11.30)
== END ==
LOC: LAB SHORT 13:50 → LAB 13:50
PROVIDERS: Internal Medicine Hematology & Oncology
DX: D72.829 Elevated white blood cell count, unspecified (principal)
CPT/HCPCS: 85025

== ENCOUNTER → 2024-11-25 | Outpatient (CLI) | payer OTHER | LOC: LAB SHORT 10:05 → LAB 10:05 | DX: R30.0 Dysuria (principal) | CPT/HCPCS: 87086 ==